=== PATIENT | male | born 1960 | race Two or more races ===

== ENCOUNTER 2023-06-11 13:45 | Emergency (ER) | payer OTHER, SELFPAY ==
--- NOTE | ~2023-06-11 | US_ITS ---
EXAMINATION: US OF GALLBLADDER CLINICAL INFORMATION: Right upper quadrant. COMPARISON: None available. TECHNIQUE: Real-time imaging of the gallbladder. FINDINGS: At least 2 polyps are noted, the largest measuring 9 x 6 x 7 mm. The gallbladder wall is mildly thickened at 3 mm. No gallstones. No pericholecystic fluid. The common bile duct measures 4 mm. US/US abdomen limited IMPRESSION: 1. Gallbladder polyps, the largest measuring 9 mm. 2. Mild gallbladder wall thickening without gallstones or other findings to suggest acute cholecystitis. Gallbladder polyps * <6 mm: No evaluation or follow-up recommended * 7-9 mm: Follow yearly with ultrasound; surgical consult if polyp grows. * >10 mm: Surgical consult.
[2023-06-11 14:26] VITALS: BP 127/94; PULSE 67; RESP 17; TEMP 36.6; O2SAT 97; BMI 26.3
--- NOTE | 2023-06-11 14:31 | ED.GENADULT ---
HPI - General Adult General Chief complaint: Abdominal Pain Stated complaint: abd pain Time Seen by Provider: 06/11/23 22:18 Source: patient Mode of arrival: ambulatory Limitations: no limitations History of Present Illness HPI narrative: 62 yo male denies any PMH and no prior surgeries reports one week of bloating and abdominal pain 30 minutes after eating. He has tried 20mg omeprazole over the counter for 1 week and pepto bismol without relief. He notes he belches and has a lot of acid as well. He is not sure if taking aleve for his back preceded all of this. He denies this ever happening before. No fevers, mild constipation MD complaint: abdominal pain Onset (ago): week(s) (1) Location: abdomen Radiation: non-radiation Severity: moderate Quality: aching, dull and constant Pain Consistency: intermittent Relieving factors: none Exacerbating factors: eating Associated symptoms: nausea/vomiting and other (acid) Treatments prior to arrival: other (PPI and pepto bismol) Related Data Previous Rx's Medication Instructions Recorded omeprazole 20 mg capsule,delayed 20 mg PO BID #60 caps 06/11/23 release Allergies Allergy/AdvReac Type Severity Reaction Status Date / Time No Known Allergies Allergy Verified 06/11/23 14:32 Review of Systems Review of Systems: Constitutional : No Weight loss, No Fever, No Chills ENT/Mouth : No sore throat, No Rhinorrhea Eyes: No Swelling, No Redness Cardiovascular : No Chest Pain, No SOB, NoEdema Respiratory : No Cough, No Sputum, No Wheezing Gastrointestinal : Positive Nausea, no Vomiting, no Diarrhea, positive abdominal Pain, No Hematochezia, No Melena, pos constipation Genitourinary : No Dysuria, No Urinary Frequency, No Hematuria, No Urgency Musculoskeletal : No joint pain, No Myalgias, No Joint Swelling Skin : No Skin Lesions, No rash Neuro : No Weakness, No Numbness, No Dizziness, No Headache Psych : No Anxiety/Panic, No Depression All other systems reviewed and are negative. [facility] Past Medical History Attestation statement: The following information was validated with the patient. Medical History No pertinent past medical history Social History Social History (Updated 06/11/23 @ 22:31 by Jasmin Moreland DO) Patient Tobacco Use Status: Never used Tobacco Physical Exam ED Vital Signs: Vital Signs - 24 hr 06/11/23 14:26 06/11/23 20:31 Temperature 97.8 F 97.5 F Pulse Rate 67 75 Respiratory Rate 17 14 Blood Pressure 127/94 H 176/72 H Pulse Oximetry 97 95 Oxygen Delivery Method Room Air Room Air BMI result Body Mass Index 26.3 Appearance: Alert. Oriented X3. No acute distress. Eyes: Pupils equal, round and reactive to light. ENT: Pharynx normal. Neck: Normal inspection. Neck supple. CVS: Normal heart rate and rhythm. Pulses normal. Respiratory: No respiratory distress. Breath sounds normal. Abdomen: Soft and ttp in RUQ + carrera's sign Skin: Skin warm and dry. Normal skin color. Normal skin turgor. Extremities: No lower extremity edema. No calf ttp Neuro: Oriented X 3. No motor deficit. No sensory deficit. Course Course Course Narrative: RME- 62-year-old male presents for evaluation of right-sided abdominal pain. Patient reports some nausea yesterday but no vomiting. Plan for labs, EKG Medical Decision Making Medical Decision Making [facility] Narrative: 62 yo male with no sig PMH no prior surgeries here with c/o RUQ and epigastric pain with increased acid and belching worsened by food - has not responded to home PPI and pepto bismol that he bought at the store. He has mild constipation. At this time could be related to recent aleve use. He could have gastritis, pancreatitis - lipase ordered, PUD - no reports of GIB, biliary colic. Labs, US ordered. Differential Diagnosis Differential Diagnoses: The differential diagnosis associated with the presentation includes gastritis, PUD, pancreatitis, biliary colic Admission/Observation Consideration of admission/observation: Escalation of care including admission/observation considered labs and US stable can be managed as outpatient Lab Data [facility] Lab Attestation statement: I reviewed the patient's lab results. 06/11/23 14:51 06/11/23 14:51 Labs: Lab Results 06/11/23 Range/Units 14:51 WBC 6.3 (4.8-10.8) X10*3/uL RBC 5.30 (4.60-5.80) X10*6/uL Hgb 16.6 (14.0-18.0) g/dl Hct 47.7 (42.0-52.0) % MCV 90.0 (80.0-98.0) fL MCH 31.3 (27.0-33.0) pg MCHC 34.8 (31.0-36.0) g/dl RDW 12.1 (11.0-16.0) % Plt Count 209 (160-400) X10*3/uL MPV 11.2 (9.4-12.4) fL Immature Gran % (Auto) 0.0 (0.0-0.4) % Neut % (Auto) 60.9 (45-73) % Lymph % (Auto) 27.0 (20-40) % [place] % (Auto) 10.7 (2-11) % Eos % (Auto) 0.9 (0-4) % Baso % (Auto) 0.5 (0-2) % Lymph # (Auto) 1.7 (1.2-4.9) X10*3/uL [place] # (Auto) 0.7 (0.1-1.2) X10*3/uL Eos # (Auto) 0.1 (0.0-0.4) X10*3/uL Baso # (Auto) 0.0 (0.0-0.2) X10*3/uL Abs Immat Gran (auto) 0.00 (0.00-0.03) X10*3/uL Absolute Neuts (auto) 3.9 (2.0-8.3) x10*3/uL Absolute Nucleated RBC 0.000 (0.0-0.012) X10*3/uL Nucleated RBC % (auto) 0.0 (0.0-0.2) /100WBC Hold Blue Top SEE NOTE Sodium 142 (135-145) mmol/L Potassium 4.3 (3.3-5.1) mmol/L Chloride 108 (96-108) mmol/L Carbon Dioxide 27 (22-29) mmol/L Anion Gap 11 L (12-20) BUN 21 H (9-16) mg/dL Creatinine 0.86 (0.5-1.4) mg/dL Estim Creat Clear Calc 83.9 Estimated GFR > 60 Random Glucose 97 (60-115) mg/dL Calcium 10.0 (8.4-10.2) mg/dL Total Bilirubin 0.4 (0.0-1.0) mg/dL AST 24 (5-37) U/L ALT 39 (0-40) U/L Alkaline Phosphatase 64 (39-117) U/L Total Protein 7.8 (6.5-8.0) g/dL Albumin 4.5 (3.5-5.0) g/dL Lipase 21 (8-78) U/L Independent Interpretation I performed an independent interpretation of an: EKG and Ultrasound (no acute cholecystitis) Interpretation: Rate: 73 Rhythm: NSR [place]: left Normal P waves. Normal EVIE. Normal QRS complex. ST T wave : normal no ROSMERY qTC: normal prior studies: no acute ischemia The study has been interpreted contemporaneously by me. . Radiology Impression Discussion of test interpretation with radiology: I have reviewed the radiologist's reading. Independent Historian Clinical information obtained from an independent historian. History obtained from or confirmed by: Friend Prescription Management I considered prescription management with: Other Discharge Plan Discharge Clinical Impression: Biliary colic Gastritis Qualifiers: Gastritis type: unspecified gastritis Chronicity: acute Gastritis bleeding: without bleeding Qualified Code(s): K29.00 - Acute gastritis without bleeding Patient Disposition: Home, Self-Care Instructions: Gastritis (ED), Biliary Colic (ED) Additional Instructions: no aspirin, motrin, ibuprofen, aleve - TYLENOL is OKAY avoid spicy, greasy, fatty foods follow up with surgeon call to schedule appointment start taking omeprazole 40mg BID for the next two weeks then 20mg daily going forward you need to see a doctor to follow up for h pylori testing you can call [facility] [phone] Prescriptions: New omeprazole 20 mg capsule,delayed release(DR/EC) 20 mg PO BID Qty: 60 0RF Referrals: Gorge Bass MD [Physician] - (call to schedule appointment)
--- NOTE | 2023-06-11 14:33 | ECG_ITS ---
Test Reason : PAIN Blood Pressure : / mmHG Vent. Rate : 073 BPM Atrial Rate : 073 BPM P-R Int : 142 ms QRS Dur : 080 ms QT Int : 412 ms P-R-T Axes : 046 -14 045 degrees QTc Int : 453 ms Normal sinus rhythm Normal ECG No previous ECGs available Referred By: Deonte Mann Electronically Signed By:CARISSA ELIZABETH MD
[2023-06-11 14:55] LABS: MANUAL DIFF FLAG NO
[2023-06-11 15:01] LABS: Basophils Percent Auto 0.5 % (0-2); Eosinophils Absolute Auto 0.1 X10*3/uL (0.0-0.4); Eosinophils Percent Auto 0.9 % (0-4); Hematocrit 47.7 % (42.0-52.0); Hemoglobin 16.6 g/dl (14.0-18.0); Lymphocytes Absolute Auto 1.7 X10*3/uL (1.2-4.9); Mean Corpuscular HGB Conc 34.8 g/dl (31.0-36.0); Mean Corpuscular Hemoglobin 31.3 pg (27.0-33.0); Mean Platelet Volume 11.2 fL (9.4-12.4); Monocytes Absolute Auto 0.7 X10*3/uL (0.1-1.2); Monocytes Percent Auto 10.7 % (2-11); Neutrophils Absolute Auto 3.9 x10*3/uL (2.0-8.3); Neutrophils Percent Auto 60.9 % (45-73); Platelet Count 209 X10*3/uL (160-400); Red Cell Distribution Width 12.1 % (11.0-16.0); White Blood Count 6.3 X10*3/uL (4.8-10.8)
[2023-06-11 15:14] LABS: Alanine Aminotransferase 39 U/L (0-40); Albumin Level 4.5 g/dL (3.5-5.0); Alkaline Phosphatase 64 U/L (39-117); Anion Gap 11 (12-20); Aspartate Amino Transferase 24 U/L (5-37); Bilirubin Total 0.4 mg/dL (0.0-1.0); Blood Urea Nitrogen 21 mg/dL (9-16); Carbon Dioxide 27 mmol/L (22-29); Chloride 108 mmol/L (96-108); Creatinine Clr Calc Pharmacy 83.9; Estimated Glomerular Filt Rate > 60; Glucose Random 97 mg/dL (60-115); Lipase 21 U/L (8-78); Potassium 4.3 mmol/L (3.3-5.1); Sodium 142 mmol/L (135-145); Total Protein 7.8 g/dL (6.5-8.0)
[2023-06-11 20:31] VITALS: BP 176/72; PULSE 75; RESP 14; TEMP 36.4; O2SAT 95
== END 2023-06-11 23:47 | disposition home or self-care (01) ==
PROVIDERS: Physician Assistant; Emergency Provider Emergency Medicine
DX: K80.50 Calculus of bile duct without cholangitis or cholecystitis without obstruction (principal); K29.00 Acute gastritis without bleeding; R10.9 Unspecified abdominal pain
CPT/HCPCS: 36415; 76705; 80053; 83690; 85025; 93005; 99284

== ENCOUNTER → 2023-06-11 14:33 | Outpatient (BNV) | payer OTHER, SELFPAY | PROVIDERS: Visit Provider Internal Medicine Cardiovascular Disease | DX: R10.13 Epigastric pain (principal) | CPT/HCPCS: 93010 ==

== ENCOUNTER 2023-06-20 12:57 | Outpatient (AMB) | payer OTHER, SELFPAY ==
--- NOTE | 2023-06-20 13:03 | A.OFFVIS_ITS ---
Intake Vital Signs 06/20/23 13:08 Height 5 ft 8 in Weight 174 lb BMI 26.5 BP 185/91 H Blood Pressure Location Rt brachial Position Sitting Pulse 67 Intake Visit Reasons: biliary colic Intake Note: This patient presents for [facility] emergency department follow-up for biliary colic. Patient c/o; reports intermittent RUQ sharp pain, reports bloating, reports burning sensation abdomen. 06/11/23 US abdomen Photograph Mounter Required: No Accompanied by: Self / Same As Patient Allergies No Known Allergies Allergy (Verified 06/20/23 13:08) Medication List - Last Reconciled 06/20/23 by Gorge Bass MD omeprazole 20 mg PO BID HPI biliary colic HPI Details 62-year-old male referred for gallbladde r polyps. He was in the ER for some transient abdominal pain earlier this month. He had an ultrasound of the abdomen showing small gallbladder polyps. He was therefore instructed to see me for follow-up visit. He describes the pain as mostly diffuse around that time. He said that he had this for about almost a week. He says that this started when he was eating spicy food around that time. He has had no further episodes. [facility] Medical History Gallbladder polyp No pertinent past medical history Surgical History No pertinent past surgical history Social History Unable to assess alcohol history related to: Unknown Alcohol intake: current Alcohol intake frequency: holidays/special occasions only Patient Tobacco Use Status: Never used Tobacco Review of Systems Const Denies chills and Denies fever(s) Card Denies chest pain, Denies dyspnea and Denies dyspnea on exertion Resp Denies cough, Denies dyspnea and Denies dyspnea on exertion GI Denies hematochezia and Denies change in bowel habits Denies hematuria and Denies difficulty urinating Musc Denies back pain and Denies limited range of motion Neuro Denies focal weakness and Denies convulsions Psych Denies depression and Denies mood swings Physical Exam Const General: comfortable and no acute distress Orientation/consciousness: patient oriented x3 Neck Neck: Yes no lymphadenopathy Resp Auscultation: clear to auscultation bilaterally Cardio Rhythm: regular rhythm GI Palpation (GI): Soft to palpation, nontender and no guarding Neuro General: patient oriented x3 Assessment & Plan Assessment & Plan (1) Gallbladder polyp: Code(s): K82.4 - Cholesterolosis of gallbladder Plan: His ultrasound shows small gallbladder polyps. With the small size, I told him it surgical intervention is not indicated. However, told him that it would be best to follow this was another ultrasound in about 6 months. I will then see him here in the office after that. He admits to frequent alcohol intake as well so I told him to avoid taking NSAIDs as etiology of his abdominal pain may be gastritis. Orders: Orders US abdomen limited 6 Months K82.4 - Cholesterolosis of gallbladder Coding Level of Care Code New Pt Level 3 (80299) Diagnoses Gallbladder polyp K82.4
[2023-06-20 13:08] VITALS: BP 185/91; PULSE 67; BMI 26.5
== END 2023-06-20 13:19 | disposition home or self-care (01) ==
PROVIDERS: Visit Provider Surgery
DX: K82.4 Cholesterolosis of gallbladder (principal)
CPT/HCPCS: 99203

== ENCOUNTER → 2023-06-20 12:57 | Outpatient (BNVA) | payer OTHER, SELFPAY | PROVIDERS: Visit Provider Surgery | DX: K82.4 Cholesterolosis of gallbladder (principal) | CPT/HCPCS: 99202 ==

== ENCOUNTER 2023-12-02 08:40 | Outpatient (REF) | payer MEDICARE, SELFPAY ==
--- NOTE | ~2023-12-02 | US_ITS ---
EXAMINATION: US ABDOMEN LIMITED CLINICAL INFORMATION: Cholesterolosis of gallbladder. COMPARISON: Limited abdominal ultrasound 06/11/2023. TECHNIQUE: Real-time imaging of the right upper quadrant abdominal viscera. FINDINGS: PANCREAS: Normal. LIVER: The liver is normal in size. The liver contour is normal. There is diffuse increased liver parenchymal echogenicity, consistent with hepatic steatosis. No focal hepatic lesion. There is no intrahepatic biliary duct dilatation seen. GALLBLADDER: The gallbladder is physiologically distended without evidence of stones, wall thickening or pericholecystic fluid. 3 mm polyp. COMMON BILE DUCT: Normal in caliber measuring 0.3 cm in diameter. RIGHT KIDNEY: Normal. No hydronephrosis. No renal calculi or focal parenchymal lesions. The kidney measures 10.5 cm in maximum dimension. FREE FLUID: None. US/US abdomen limited IMPRESSION: 3 mm gallbladder polyp. If patient has symptoms attributable to the gallbladder, cholecystectomy is suggested if there are no alternative causes for the symptoms and the patient is fit for and accepts surgery. If patient has no symptoms and risk factors are present or patient is symptomatic and cholecystectomy is deemed not appropriate, follow-up.
== END 2023-12-02 08:41 | disposition home or self-care (01) ==
LOC: HO.US 08:40
PROVIDERS: Visit Provider Surgery
DX: K82.4 Cholesterolosis of gallbladder (principal)
CPT/HCPCS: 76705

== ENCOUNTER 2023-12-23 10:06 | Outpatient (AMB) | payer MEDICARE, SELFPAY ==
[2023-12-23 10:18] VITALS: BMI 27.1
--- NOTE | 2023-12-23 10:18 | MHC.OFFVIS ---
Vital Signs 12/23/23 10:18 Height 5 ft 8 in Weight 178 lb BMI 27.1 Intake Visit Reasons: biliary colic, 6 mo follow up Intake Note: This patient presents for a six month follow-up for biliary colic. Patient c/o; reports several weeks ago had acid reflux and RUQ pressure otherwise patient feels well overall. 12/02/2023: Abdominal US Shake Feeder Required: No Accompanied by: Self / Same As Patient Allergies No Known Allergies Allergy (Verified 12/23/23 10:25) Medication List - Last Reconciled 12/23/23 by Gorge Bass MD omeprazole 20 mg PO BID HPI HPI biliary colic, 6 mo follow up: Details: He is here for follow-up for a gallbladder polyp. I had previously seen him months ago because of a 3 mm gallbladder polyp. He denied any symptoms at that time. I would recommended repeating his ultrasound within 6 months she He says he feels well overall and denies any new complaints. He does not seem to describe any right upper quadrant pain or tenderness. He does admit to reflux and takes Prilosec for this. [facility] Medical History Gallbladder polyp No pertinent past medical history Surgical History No pertinent past surgical history Social History Unable to assess alcohol history related to: Unknown Alcohol intake: current Alcohol intake frequency: holidays/special occasions only Patient Tobacco Use Status: Never used Tobacco Review of Systems Const Denies chills and Denies fever(s) Card Denies chest pain, Denies dyspnea and Denies dyspnea on exertion Resp Denies cough, Denies dyspnea and Denies dyspnea on exertion GI Denies hematochezia and Denies change in bowel habits Denies hematuria and Denies difficulty urinating Musc Denies back pain and Denies limited range of motion Neuro Denies focal weakness and Denies convulsions Psych Denies depression and Denies mood swings Physical Exam Vital Signs: BMI result Body Mass Index 27.1 Const General: comfortable and no acute distress Resp Effort & Inspection: normal respiratory effort Cardio Rate: regular rate GI Palpation (GI): Soft to palpation, not firm, nontender and no guarding Assessment & Plan Assessment & Plan (1) Gallbladder polyp: Code(s): K82.4 - Cholesterolosis of gallbladder Category: Medical Plan: Follow-up ultrasound done last month showed the gallbladder polyp to be 3 mm in size. I therefore told him that cholecystectomy is not indicated based on size. He denies symptoms that seem to suggest gallbladder disease either. I told him therefore that I would recommend repeating his ultrasound in 1 year. I will see him after next year with regards to this He does not have any primary care physician. We will assist him in establishing a relationship with 1 of our primary care physicians here at the hospital. Coding Level of Care Code Est Pt Level 3 (37481) Diagnoses Gallbladder polyp K82.4
== END 2023-12-23 10:34 | disposition home or self-care (01) ==
PROVIDERS: Visit Provider Surgery
DX: K82.4 Cholesterolosis of gallbladder (principal)
CPT/HCPCS: 99213

== ENCOUNTER → 2023-12-23 10:06 | Outpatient (BNVA) | payer MEDICARE, SELFPAY | PROVIDERS: Visit Provider Surgery | DX: K82.4 Cholesterolosis of gallbladder (principal) | CPT/HCPCS: 99212 ==

== ENCOUNTER 2024-07-23 10:39 | Emergency (ER) | payer MEDICARE, SELFPAY ==
--- NOTE | ~2024-07-23 | XR_ITS ---
EXAMINATION: XR CHEST CLINICAL INFORMATION: pain COMPARISON: None available. TECHNIQUE: 2 views of the chest were obtained. FINDINGS: The cardiac, hilar, and mediastinal contours are normal. There is thickening of the right paratracheal region. The lungs are clear bilaterally. There is no pneumothorax or pleural effusion. There is no focal osseous or soft tissue abnormality. XR/XR chest 2V IMPRESSION: 1. Lungs are clear. 2. Thickening of the right paratracheal region, possibly ectatic vasculature although underlying adenopathy or mass is not excluded. Consider correlation with CT. Electronically signed by: Wilmar Juárez MD 07/23/2024 11:32 AM [facility]
--- NOTE | ~2024-07-23 | CT_ITS ---
CLINICAL HISTORY: CP, ?mass CT CHEST WITH CONTRAST Comparison: CR/SC/SR - XR CHEST 2V - 07/23/24 11:27 EST Findings: The heart size is normal. The thoracic aorta is normal in caliber. The visualized thyroid and mediastinum are unremarkable. No consolidation, pleural effusion or pneumothorax. No pulmonary mass. There is an 8 mm noncalcified ovoid nodule in the left upper lobe that abuts the fissure on axial image 60 series 4. There is diffuse fatty infiltration of the liver. No acute fractures. IMPRESSION: 1. No mediastinal mass, lymphadenopathy or fluid collection. 2. No acute pleural or pulmonary parenchymal abnormality. 3. Solitary 8 mm left lung nodule in the left upper lobe. ACR Fleischner Society recommendations (MacMahon, et al. Radiology 2017; 284(1): 228-43) suggest the following: For patients with low risk of lung cancer, follow-up chest CT at 6-12 months. If stable, no further follow-up or an optional chest CT at 18-24 months if there is high index of suspicion. For patients with high risk of lung cancer, initial follow-up chest CT at 6-12 months, if stable, another follow-up chest CT at 18-24 months. This document has been electronically signed by: Suma Doll DO on 07/23/2024 17:16:52
--- NOTE | 2024-07-23 10:48 | ECG_ITS ---
Test Reason : chest pain Blood Pressure : */* mmHG Vent. Rate : 71 BPM Atrial Rate : 71 BPM P-R Int : 144 ms QRS Dur : 80 ms QT Int : 396 ms P-R-T Axes : 30 -17 37 degrees QTcB Int : 430 ms Normal sinus rhythm Normal ECG When compared with ECG of 11-Jun-2023 14:45, No significant change was found Referred By: Generic ED Physician Electronically Signed By: BG PIZARRO
[2024-07-23 11:01] VITALS: BP 176/99; PULSE 75; RESP 18; TEMP 36.7; O2SAT 96; BMI 27.1
--- NOTE | 2024-07-23 11:02 | ED_ITS ---
[facility] - General Adult General Chief complaint: Chest Pain Stated complaint: Recent facial numbness, chest pain Time Seen by Provider: 07/23/24 15:37 Source: patient and RN notes reviewed Mode of arrival: ambulatory Limitations: no limitations History of Present Illness ED Provider: Steph Desir PA-C [facility] narrative: This is a 63-year-old male, no known medical problems (however has not seen a medical provider in over 12 years), who presents emergency department with complaints of ongoing chest pain for 1 week. Patient states that he developed left-sided chest pain which radiated down into his left shoulder, and left arm while he was with his son. Patient states that since he has felt this he has had constant chest pain, which waxes and wanes in severity. He describes his pain as a pressure-like sensation. Patient does endorse some shortness of breath. He denies any fevers, chills, abdominal pain, nausea, vomiting or diarrhea. No nasal congestion. No recent travel, surgery, or hospitalizations. Denies any changes in weight, he does report he has had several instances of night sweats. MD complaint: Chest pain Onset (ago): week(s) Quality: aching Pain Consistency: constant Relieving factors: none Exacerbating factors: none Associated symptoms: chest pain Related Data Previous Rx's ?Medication ?Instructions ?Recorded omeprazole 20 mg capsule,delayed 20 mg PO BID #60 caps 12/25/23 release amlodipine 5 mg tablet 5 mg PO DAILY 30 days #30 tabs 07/23/24 Allergies Allergy/AdvReac Type Severity Reaction Status Date / Time No Known Allergies Allergy Verified 07/23/24 11:02 Review of Systems 2 Review of Systems: Yes all other systems are reviewed and are negative Constitutional: Constitutional: Reports as per [facility] Past Medical History Medical History Gallbladder polyp No pertinent past medical history Surgical History No pertinent past surgical history Social History Social History Unable to assess alcohol history related to: Unknown Alcohol intake: current Alcohol intake frequency: holidays/special occasions only Patient Tobacco Use Status: Never used Tobacco Smoked in Last 30 Days: No Use of substances other than those prescribed or required for medical reasons: No Advance Directives: No Advance Directives Information Provided: Yes Physical Exam ED Vital Signs: Vital Signs - 24 hr 07/23/24 11:01 07/23/24 16:39 07/23/24 18:27 Temperature 98.0 F 98 F 98.6 F Pulse Rate 75 68 83 Respiratory Rate 18 18 17 Blood Pressure 176/99 H 179/99 H 198/102 H Pulse Oximetry 96 98 100 Oxygen Delivery Method Room Air Room Air Room Air 07/23/24 18:42 Temperature 98.6 F Pulse Rate 83 Respiratory Rate 17 Blood Pressure 198/102 H Pulse Oximetry 100 Oxygen Delivery Method Room Air BMI result Body Mass Index 27.1 Const General: cooperative, comfortable and no acute distress Orientation/consciousness: patient oriented x3 Limitations: no limitations HENMT Head: Yes normal to inspection, Yes normocephalic and Yes atraumatic Ears: hearing grossly normal bilaterally General nose exam: Normal external nose present Face and sinus: Yes normal facial exam Mouth: Normal oral and palatal mucosa present, oropharynx normal and moist mucous membranes Throat: Yes posterior oropharynx normal Eyes General: appearance normal, both eyes and all related structures Eyelids: Yes eyelids normal Conjunctivae: conjunctivae normal Sclerae: sclerae normal Pupils: Equal, round and reactive pupils present EOM: EOMs intact bilaterally Neck Neck: Yes normal visual inspection, Yes full ROM and Yes no lymphadenopathy Lymphatic: no lymphadenopathy noted Chest Chest palpation & inspection: normal inspection of the chest Resp Effort & Inspection: normal respiratory effort and able to speak in complete sentences Auscultation: clear to auscultation bilaterally, no crackles, no rales, no rhonchi and no wheezes Cardio Rate: regular rate Rhythm: regular rhythm Heart sounds: S1 normal heart sound present and S2 normal heart sound present GI Inspection: Yes normal to inspection Skin General skin exam: no rashes or lesions noted Trauma: no lacerations or abrasions Wounds: no wounds Neuro General: patient oriented x3 and moves all extremities Cranial nerves: Yes Equal, round and reactive pupils present Extrem General: Yes normal to inspection Right upper extremity: normal to inspection Left upper extremity: normal to inspection Right lower extremity: normal to inspection Left lower extremity: normal to inspection Course Course Course Narrative: RME, this is a rapid medical exam performed by Ibrahima Mann please refer to primary provider for complete H&P- 63-year-old male presents for evaluation of chest pain for 1 week. Had an EKG ordered on arrival. Plan for labs as well. Reevaluation(s) Reevaluation #1: CT revealing solitary 8 mm left lung nodule in the left upper lobe. There is no mediastinal mass, lymphadenopathy or fluid collection. I discussed this workup with my attending physician, Dr. Grider. Given negative troponin x2, normal EKG, normal chest x-ray, patient can be discharged. Will discharge patient on amlodipine given elevated blood pressure readings. Given strict return precautions. Also cardiology referral. He understands and agrees with plan. Patient stable for discharge. Time: 17:32 Medications Administered Discontinued Medications Generic Name Dose Route Start Last Admin Trade Name Freq PRN Reason Stop Dose Admin Iohexol 65 ml 07/23/24 16:37 07/23/24 16:38 Iohexol 350 Mg/Ml 100 Ml Infus..Btl IV 07/23/24 16:38 65 ml ONCE ONE Administration Medical Decision Making Medical Decision Making [facility] Narrative: This is a 63-year-old male who presents emergency department with complaints of intermittent chest pressure with shortness of breath for the last week. Patient reports that the chest pain is pressure however states intermittent worsening chest pain, with radiation down his left arm. He states that the chest pain has not fully resolved. Patient mildly hypertensive at 176/90, all other vital signs within normal limits. He is speaking in full sentences under no acute distress. Lungs are clear to auscultation bilaterally. EKG normal sinus rhythm with no ST elevation or depression. Labs were obtained prior to my assessment, he was no leukocytosis, stable H&H, chemistry with no significant electrolyte derangement. First troponin negative. Influenza, RSV, and COVID negative. Chest x-ray revealing clear lungs however there is thickening of the right paratracheal region possibly ectatic vasculature a low underlying adenopathy or masses not excluded. Recommending correlation of CT scan. CT scan ordered Differential Diagnosis Differential Diagnoses: The differential diagnosis associated with the presentation includes ACS, costochondritis, pneumonia, viral illness Admission/Observation Consideration of admission/observation: Escalation of care including admission/observation considered Escalation of care including admission/observation considered however given workup today not warranted at this time. Lab Data [facility] Lab Attestation statement: I reviewed the patient's lab results. See [facility] 07/23/24 11:16 07/23/24 11:16 Labs: Lab Results 07/23/24 07/23/24 07/23/24 Range/Units 11:16 16:13 16:52 WBC 5.9 (4.8-10.8) X10*3/uL RBC 5.08 (4.60-5.80) X10*6/uL Hgb 16.5 (14.0-18.0) g/dl Hct 45.8 (42.0-52.0) % MCV 90.2 (80.0-98.0) fL MCH 32.5 (27.0-33.0) pg MCHC 36.0 (31.0-36.0) g/dl RDW 11.9 (11.0-16.0) % Plt Count 182 (160-400) X10*3/uL MPV 11.0 (9.4-12.4) fL Immature Gran % (Auto) 0.2 (0.0-0.4) % Neut % (Auto) 56.8 (45-73) % Lymph % (Auto) 28.2 (20-40) % Logan % (Auto) 12.8 H (2-11) % Eos % (Auto) 1.5 (0-4) % Baso % (Auto) 0.5 (0-2) % Lymph # (Auto) 1.7 (1.2-4.9) X10*3/uL Logan # (Auto) 0.8 (0.1-1.2) X10*3/uL Eos # (Auto) 0.1 (0.0-0.4) X10*3/uL Baso # (Auto) 0.0 (0.0-0.2) X10*3/uL Abs Immat Gran (auto) 0.01 (0.00-0.03) X10*3/uL Absolute Neuts (auto) 3.4 (2.0-8.3) x10*3/uL Absolute Nucleated RBC 0.000 (0.0-0.012) X10*3/uL Nucleated RBC % (auto) 0.0 (0.0-0.2) /100WBC PT 11.5 (10.9-12.4) SEC INR 1.0 (0.9-1.1) Sodium 139 (135-145) mmol/L Potassium 3.9 (3.3-5.1) mmol/L Chloride 108 (96-108) mmol/L Carbon Dioxide 27 (22-29) mmol/L Anion Gap 8 L (12-20) BUN 14 (9-16) mg/dL Creatinine 0.73 (0.5-1.4) mg/dL Estim Creat Clear Calc 97.6 Estimated GFR > 60 Random Glucose 93 (60-115) mg/dL Calcium 9.3 D (8.4-10.2) mg/dL Total Bilirubin 0.4 (0.0-1.0) mg/dL AST 29 (5-37) U/L ALT 50 H (0-40) U/L Alkaline Phosphatase 64 (39-117) U/L Troponin I High Sens < 2.7 < 2.7 (<3.5-35.0) ng/L B-Natriuretic Peptide 14 (<100) pg/mL Total Protein 7.6 (6.5-8.0) g/dL Albumin 4.3 (3.5-5.0) g/dL Lipase 24 (8-78) U/L Influenza Type A (PCR) NEGATIVE (Negative) Influenza Type B (PCR) NEGATIVE (Negative) RSV RNA Qual (PCR) NEGATIVE (Negative) SARS-CoV-2 RNA (RT-PCR) NEGATIVE (Negative) Independent Interpretation I performed an independent interpretation of an: EKG Interpretation: EKG normal sinus rhythm at a ventricular rate of 71 beats per minute, no ST elevation or depression. Radiology Impression Discussion of test interpretation with radiology: I have reviewed the radiologist's reading. Radiologist Impression: [place] [id number] XRay Report Signed Patient: Jordan Blanco MR#: [id number] : 1960 Acct:[id number] Age/Sex: 63 / M ADM Date: 07/23/24 Loc: .ED Attending Dr: Ordering Physician: Deonte Mann Date of Service: 07/23/24 Procedure(s): XR chest 2V Accession Number(s): [id number] cc: Deonte Mann; Physician,None ~ EXAMINATION: XR CHEST CLINICAL INFORMATION: pain COMPARISON: None available. TECHNIQUE: 2 views of the chest were obtained. FINDINGS: The cardiac, hilar, and mediastinal contours are normal. There is thickening of the right paratracheal region. The lungs are clear bilaterally. There is no pneumothorax or pleural effusion. There is no focal osseous or soft tissue abnormality. XR/XR chest 2V IMPRESSION: 1. Lungs are clear. 2. Thickening of the right paratracheal region, possibly ectatic vasculature although underlying adenopathy or mass is not excluded. Consider correlation with CT. Electronically signed by: Wilmar Juárez MD 07/23/2024 11:32 AM [facility] Dictated By: Wilmar Juárez MD Scores Heart Score History: -0- slightly suspicious ECG: -0- normal Age: -2- > or = 65 Risk factory: -1- 1 or 2 risk factors Troponin: -0- < or = normal limit Score: 3 Risk: 1.7% Discharge Plan Discharge Clinical Impression: Chest pain Patient Disposition: Home, Self-Care Instructions: Chest Pain (ED) Additional Instructions: You were seen in the emergency department due to ongoing chest pain. Your EKG was normal. Your blood pressure has been elevated, because of this, I am going to start you on blood pressure medication. Please take as prescribed. Monitor your blood pressure at home, buy a blood pressure cuff that goes around your upper arm. Record the levels, this may take several weeks for your blood pressure to improve. Your CT scan shows a solitary 8 mm left lung nodule in the left upper lobe. See below for recommendations for follow-up regarding this finding: ACR Fleischner Society recommendations (MacMahon, et al. Radiology 2017; 284(1): 228-43) suggest the following: For patients with low risk of lung cancer, follow-up chest CT at 6-12 months. If stable, no further follow-up or an optional chest CT at 18-24 months if there is high index of suspicion. For patients with high risk of lung cancer, initial follow-up chest CT at 6-12 months, if stable, another follow-up chest CT at 18-24 months. You tested negative for COVID, flu, RSV. Please drink plenty of fluids get plenty of rest. If any new or worsening symptoms occur including but not limited to worsening chest pain, shortness of breath, please seek emergent care. I would like for you to follow-up with Cardiology, call tomorrow to make an appointment. Would also like you to follow-up with the [facility], this is a primary care office. Prescriptions: New amlodipine 5 mg tablet 5 mg PO DAILY 30 Days Qty: 30 0RF No Action omeprazole 20 mg capsule,delayed release(DR/EC) 20 mg PO BID Qty: 60 0RF Referrals: [facility] Group] [facility] [Physician] - Interventions: ED Discharge Assessment Last Done: 07/23/24 18:42 Discharge Date/Time: 07/23/24 18:44 Print Language: Urdu
[2024-07-23 11:24] LABS: MANUAL DIFF FLAG NO
[2024-07-23 11:28] LABS: Basophils Percent Auto 0.5 % (0-2); Eosinophils Absolute Auto 0.1 X10*3/uL (0.0-0.4); Eosinophils Percent Auto 1.5 % (0-4); Hematocrit 45.8 % (42.0-52.0); Hemoglobin 16.5 g/dl (14.0-18.0); Imm Gran Abs Auto 0.01 X10*3/uL (0.00-0.03); Imm Gran Pct Auto 0.2 % (0.0-0.4); Lymphocytes Absolute Auto 1.7 X10*3/uL (1.2-4.9); Lymphocytes Percent Auto 28.2 % (20-40); Mean Corpuscular Hemoglobin 32.5 pg (27.0-33.0); Mean Corpuscular Volume 90.2 fL (80.0-98.0); Monocytes Absolute Auto 0.8 X10*3/uL (0.1-1.2); Monocytes Percent Auto 12.8 % (2-11); Neutrophils Absolute Auto 3.4 x10*3/uL (2.0-8.3); Neutrophils Percent Auto 56.8 % (45-73); Platelet Count 182 X10*3/uL (160-400); Red Blood Count 5.08 X10*6/uL (4.60-5.80); Red Cell Distribution Width 11.9 % (11.0-16.0); White Blood Count 5.9 X10*3/uL (4.8-10.8)
[2024-07-23 11:31] LABS: Prothrombin Time 11.5 SEC (10.9-12.4)
[2024-07-23 11:41] LABS: Albumin Level 4.3 g/dL (3.5-5.0); Alkaline Phosphatase 64 U/L (39-117); Anion Gap 8 (12-20); Aspartate Amino Transferase 29 U/L (5-37); Bilirubin Total 0.4 mg/dL (0.0-1.0); Blood Urea Nitrogen 14 mg/dL (9-16); Calcium 9.3 mg/dL (8.4-10.2); Carbon Dioxide 27 mmol/L (22-29); Chloride 108 mmol/L (96-108); Creatinine Clr Calc Pharmacy 97.6; Estimated Glomerular Filt Rate > 60; Glucose Random 93 mg/dL (60-115); Lipase 24 U/L (8-78); Potassium 3.9 mmol/L (3.3-5.1); Sodium 139 mmol/L (135-145); Total Protein 7.6 g/dL (6.5-8.0)
[2024-07-23 11:50] LABS: Troponin-I High Sensitivity < 2.7 ng/L (<3.5-35.0)
[2024-07-23 11:57] LABS: Alanine Aminotransferase 50 U/L (0-40)
[2024-07-23 12:12] LABS: Influenza A PCR NEGATIVE (Negative); Influenza B PCR NEGATIVE (Negative); Resp Syncy Virus RNA Qual PCR NEGATIVE (Negative); SARS COV2 PCR INHOUSE NEGATIVE (Negative)
[2024-07-23] MEDS: iohexoL 350 MG/ML 100 ML INFUS..BTL 65 ML IV (16:38)
[2024-07-23 16:39] VITALS: BP 179/99; PULSE 68; RESP 18; TEMP 36.6; O2SAT 98
[2024-07-23 16:46] LABS: Troponin-I High Sensitivity < 2.7 ng/L (<3.5-35.0)
[2024-07-23 17:32] LABS: B Type Natriuretic Peptide 14 pg/mL (<100)
[2024-07-23 18:27] VITALS: BP 198/102; PULSE 83; RESP 17; TEMP 37; O2SAT 100
[2024-07-23 18:42] VITALS: BP 198/102; PULSE 83; RESP 17; TEMP 37; O2SAT 100
--- OUTSIDE RECORDS SUMMARY | 2024-07-23 19:36 | XMS_ITS | Clinical Summary ---
Author Organization [facility] Address [address] [place] [address] Phone Care Team Providers Care Contract Administrative Assistant Name Role Phone Physician, No Pcp Primary Care Provider Unavaila ble Allergies No known active allergies Encounters Date Type Department Care Team Description 07/18/2024 3:36 PM EST - 07/19/2024 Emergency [facility] Emergency [address] [place] [address] Discharge Disposition: Left Against Medical Advice from Last 3 Months Medical History Medical History Date Comments HTN (hypertension) Social History Tobacco Use Types Packs/Day Years Used Date Smoking Tobacco: Never Smokeless Tobacco: Never Tobacco Cessation:Counseling Given: Not Answered Sex and Gender Information Value Date Recorded Sex Assigned at Not on file Gender Identity Not on file Sexual Orientation Not on file Job Start Date Occupation Industry Not on file Not on file Not on file Obstetrics History Last Filed Vital Signs Vital Sign Reading Time Taken Comments Blood Pressure 154/79 07/18/2024 8:03 PM EST Pulse 67 07/18/2024 8:03 PM EST Temperature 36.4 ??C (97.5 ??F) 07/18/2024 8:03 PM ES T Respiratory Rate 16 07/18/2024 8:03 PM EST Oxygen Saturation 97% 07/18/2024 8:03 PM EST Inhaled Oxygen Concentration - - Weight 80.3 kg (177 lb) 07/18/2024 3:53 PM EST Height 172.7 cm (5' 8 ) 07/18/2024 3:53 PM EST Body Mass Index 26.91 07/18/2024 3:53 PM EST Plan of Treatment Health Maintenance Due Date Last Done Comments Cholesterol Screening (Lipid Panel) 08/11/2022 Colorectal Cancer Screening: Colonoscopy 08/11/2022 Depression Screening 08/11/2022 Hepatitis C Screening 08/11/2022 Medicare Annual Wellness Visit 08/11/2022 Social Influencers of Health Screening 08/11/2022 Falls Risk Assessment 11/03/2023 Pneumococcal Vaccine: 65+ Years (1 of 1 - PCV) 11/03/2023 COVID-19 Vaccine (2 - 2023-2 5 season) 2024 07/04/2022 Influenza Vaccine (#1) 2024 DTaP,Tdap,and Td Vaccines (2 - Td or Tdap) 12/10/2031 12/09/2021 RSV Immunization Patients 60 + Years Old (1 - 1-dose 75+ series) 2033 Zoster Vaccines Completed 06/26/2023, 07/04/2022 HIB Vaccines Aged Out No longer eligi ble based on patient's age to complete this topic HPV Vaccines Aged Out No longer eligi ble based on patient's age to complete this topic Hepatitis A Vaccines Aged Out No long er eligible based on patient's age to complete this topic Hepatitis B Vaccines Aged Out No long er eligible based on patient's age to complete this topic IPV Vaccines Aged Out No longer eligi ble based on patient's age to complete this topic MMR Vaccines Aged Out No longer eligi ble based on patient's age to complete this topic Meningococcal ACWY Vaccine Aged Out N o longer eligible based on patient's age to complete this topic Pneumococcal Vaccine: Pediatrics (0 to 5 Years) and At-Risk Patients (6 to 64 Years) Aged Out No longer eligible b ased on patient's age to complete this topic RSV Immunization Patients Under 20 months Aged Out No longer eligible b ased on patient's age to complete this topic Varicella Vaccines Aged Out No longer eligible based on patient's age to complete this topic Procedures Procedure Name Priority Date/Time Associated Diagnosis Comments XR CHEST 2 VIEWS STAT 07/18/2024 5:50 PM EST CBC WITH AUTO DIFFERENTIAL STAT 07/18/2024 5:42 PM EST B-TYPE NATRIURETIC PEPTIDE STAT 07/18/2024 5:42 PM EST MAGNESIUM STAT 07/18/2024 5:42 PM EST LIPASE STAT 07/18/2024 5:42 PM EST COMPREHENSIVE METABOLIC PANEL STAT 07/18/2024 5:42 PM EST CBC AND DIFFERENTIAL STAT 07/18/2024 5:42 PM EST TROPONIN I HIGH SENSITIVITY STAT 07/18/2024 5:42 PM EST ECG 12-LEAD STAT 07/18/2024 3:50 PM EST from Last 3 Months Results * XR Chest 2 Views (07/18/2024 5:50 PM EST) Anatomical Region Laterality Modality Body Radiographic Li ging 07/19/2024 10:1 6 AM EST Impressions 07/19/2024 10:16 AM EST Impression: No active pulmonary process identified. Telerad DEDE ([id number]) -------- FINAL REPORT -------- Dictated By: Xochitl Baig Dictated Date: 07/19/2024 10:16 ET Assigned Physician: Xochitl Baig Reviewed and Electronically Signed By: Xochitl Baig Signed Date: 07/19/2024 10:16 ET Workstation ID: [id number] Transcribed By: Self Edit Transcribed Date: 07/19/2024 10:16 ET Narrative 07/19/2024 10:16 AM EST History: Chest pain. Comparison: No previous imaging at this institution. Findings: PA and lateral views. The cardiomediastinal silhouette, hilar contours and pulmonary vascularity are within normal limits. The lungs are clear. The costophrenic angles are sharp. The regional skeleton is intact. Procedure Note Xochitl Baig MD - 07/19/2024 History: Chest pain. Comparison: No previous imaging at this institution. Findings: PA and lateral views. The cardiomediastinal silhouette, hilar contours andpulmonary vascularity are within normal limits. The lungs are clear. Thecostophrenic angles are sharp. The regional skeleton is intact. IMPRESSION: Impression: No active pulmonary process identified. Telerad PA ([id number]) -------- FINAL REPORT -------- Dictated By: Xochitl Baig Dictated Date: 07/19/2024 10:16 ET Assigned Physician: Xochitl Baig Reviewed and Electronically Signed By: Xochitl Baig Signed Date: 07/19/2024 10:16 ET Workstation ID: [id number] Transcribed By: Self Edit Transcribed Date: 07/19/2024 10:16 ET Demetrius Vitale MD IMG XR PROCEDURES * Troponin I high sensitivity (07/18/2024 5:42 PM EST) [facility] High Sensitivity Troponin I 7 <=79 ng/L LAB CHEMISTRY METHOD 07/18/2024 6:31 PM EST [facility] Blood Venous blood specimen / Unknown Venipuncture / Unknown 07/18/2024 5:42 PM EST 07/18/2024 6:02 PM EST Narrative [facility] - 07/18/2024 6:31 PM EST High levels of biotin in samples may falsely decrease hsTroponin values. ??Use caution when interpreting hsTroponin results in patients taking biotin who exhibit renal impairment (eGFR <60) or in patients taking more than 20 mg/day of biotin. Demetrius Vitale MD LAB BLOOD ORDERABLE S [facility] [address] [place] [address], * (ABNORMAL) CBC auto differential (07/18/2024 5:42 PM EST) [facility] WBC 8.2 4.8 - 10.8 K/[facility] LAB HEMETOLOGY METHOD 07/18/2024 6:08 PM EST [facility] RBC 5.20 4.50 - 5.50 M/[facility] LAB HEMETOLOGY METHOD 07/18/2024 6:08 PM [facility] Hemoglobin 16.5 13.5 - 17.5 g/dL LAB HEMETOLOGY METHOD 07/18/2024 6:08 PM [facility] Hematocrit 47.9 42.0 - 54.0 % LAB HEMETOLOGY METHOD 07/18/2024 6:08 PM [facility] MCV 92.6 79.0 - 98.0 FL LAB HEMETOLOGY METHOD 07/18/2024 6:08 PM [facility] MCH 31.9 27.0 - 32.0 pcg LAB HEMETOLOGY METHOD 07/18/2024 6:08 PM [facility] MCHC 34.4 32.0 - 37.0 g/dL LAB HEMETOLOGY METHOD 07/18/2024 6:08 PM [facility] RDW 12.0 11.0 - 15.0 % LAB HEMETOLOGY METHOD 07/18/2024 6:08 PM [facility] Platelets 212 130 - 400 K/mcL LAB HEMETOLOGY METHOD 07/18/2024 6:08 PM [facility] MPV 11.2(H) 7.0 - 11.0 FL LAB HEMETOLOGY METHOD 07/18/2024 6:08 PM [facility] NRBC 0.0 <1.0 % LAB HEMETOLOGY METHOD 07/18/2024 6:08 PM [facility] NRBC Absolute 0.00 <0.10 K/mcL LAB HEMETOLOGY METHOD 07/18/2024 6:08 PM [facility] Neutrophils Relative 62.1 % LAB HEMETOLOGY METHOD 07/18/2024 6:08 PM [facility] Lymphocytes Relative 26.4 % LAB HEMETOLOGY METHOD 07/18/2024 6:08 PM [facility] Monocytes Relative 9.7 % LAB HEMETOLOGY METHOD 07/18/2024 6:08 PM [facility] Eosinophils Relative 1.0 % LAB HEMETOLOGY METHOD 07/18/2024 6:08 PM [facility] Basophils Relative 0.6 % LAB HEMETOLOGY METHOD 07/18/2024 6:08 PM [facility] Immature Granulocytes Relative 0.2 % LAB HEMETOLOGY METHOD 07/18/2024 6:08 PM [facility] Neutrophils Absolute 5.06 1.50 - 7.00 K/mcL LAB HEMETOLOGY METHOD 07/18/2024 6:08 PM [facility] Lymphocytes Absolute 2.15 1.00 - 5.00 K/mcL LAB HEMETOLOGY METHOD 07/18/2024 6:08 PM [facility] Monocytes Absolute 0.79 0.20 - 1.00 K/mcL LAB HEMETOLOGY METHOD 07/18/2024 6:08 PM EST [facility] Eosinophils Absolute 0.08 0.00 - 0.50 K/mcL LAB HEMETOLOGY METHOD 07/18/2024 6:08 PM [facility] Basophils Absolute 0.05 0.00 - 0.20 K/mcL LAB HEMETOLOGY METHOD 07/18/2024 6:08 PM [facility] Immature Granulocytes Absolute 0.02 0.00 - 0.03 K/mcL LAB HEMETOLOGY METHOD 07/18/2024 6:08 PM [facility] Blood Venous blood specimen / Unknown Venipuncture / Unknown 07/18/2024 5:42 PM EST 07/18/2024 6:02 PM EST Demetrius Vitale MD LAB BLOOD ORDERABLE S [facility] [address] [place] [address], * B-type natriuretic peptide (07/18/2024 5:42 PM EST) BNP 6 <=100 pcg/mL LAB CHEMISTRY METHOD 07/18/2024 6:39 PM EST [facility] Blood Venous blood specimen / Unknown Venipuncture / Unknown 07/18/2024 5:42 PM EST 07/18/2024 6:02 PM EST Demetrius Vitale MD LAB BLOOD ORDERABLE S [facility] [address] [place] [address], [place] [phone] * Magnesium (07/18/2024 5:42 PM EST) Magnesium 2.2 1.9 - 2.6 mg/dL LAB CHEMISTRY METHOD 07/18/2024 6:36 PM EST [facility] Blood Venous blood specimen / Unknown Venipuncture / Unknown 07/18/2024 5:42 PM EST 07/18/2024 6:02 PM EST Demetrius Vitale MD LAB BLOOD ORDERABLE S [facility] [address] [place] [address], [place] [phone] * Lipase (07/18/2024 5:42 PM EST) Lipase 44 13 - 75 unit/L LAB CHEMISTRY METHOD 07/18/2024 6:36 PM EST [facility] Blood Venous blood specimen / Unknown Venipuncture / Unknown 07/18/2024 5:42 PM EST 07/18/2024 6:02 PM EST Demetrius Vitale MD LAB BLOOD ORDERABLE S [facility] [address] [place] [address], [place] [phone] * Comprehensive metabolic panel (07/18/2024 5:42 PM EST) Sodium 138 133 - 145 mmol/L LAB CHEMISTRY METHOD 07/18/2024 6:36 PM [facility] Potassium 4.1 3.5 - 5.5 mmol/L LAB CHEMISTRY METHOD 07/18/2024 6:36 PM [facility] Chloride 106 96 - 110 mmol/L LAB CHEMISTRY METHOD 07/18/2024 6:36 PM [facility] CO2 27 21 - 32 mmol/L LAB CHEMISTRY METHOD 07/18/2024 6:36 PM [facility] Anion Gap 5 3 - 11 LAB CHEMISTRY METHOD 07/18/2024 6:36 PM [facility] Glucose 94 70 - 100 mg/dL LAB CHEMISTRY METHOD 07/18/2024 6:36 PM [facility] BUN 20 5 - 25 mg/dL LAB CHEMISTRY METHOD 07/18/2024 6:36 PM [facility] Creatinine 0.87 0.70 - 1.30 mg/dL LAB CHEMISTRY METHOD 07/18/2024 6:36 PM [facility] eGFR 96 >=60 mL/min/1. 73m2 LAB CHEMISTRY METHOD 07/18/2024 6:36 PM [facility] Comment:Calculation based on the??Chronic Kidney Disease Epidemiology Collaboration (CKD-EPI) equation refit??without adjustment for race. BUN/Creatinine Ratio 23.0 LAB CHEMISTRY METHOD 07/18/2024 6:36 PM [facility] Calcium 9.4 8.5 - 10.5 mg/dL LAB CHEMISTRY METHOD 07/18/2024 6:36 PM [facility] AST (SGOT) 21 10 - 42 unit/L LAB CHEMISTRY METHOD 07/18/2024 6:36 PM [facility] ALT (SGPT) 52 10 - 60 unit/L LAB CHEMISTRY METHOD 07/18/2024 6:36 PM EST [facility] Alkaline Phosphatase 76 42 - 121 unit/L LAB CHEMISTRY METHOD 07/18/2024 6:36 PM EST [facility] Total Protein 7.5 6.0 - 8.0 g/dL LAB CHEMISTRY METHOD 07/18/2024 6:36 PM [facility] Albumin 4.0 3.2 - 5.0 g/dL LAB CHEMISTRY METHOD 07/18/2024 6:36 PM [facility] Total Bilirubin 0.3 0.0 - 1.4 mg/dL LAB CHEMISTRY METHOD 07/18/2024 6:36 PM [facility] Blood Venous blood specimen / Unknown Venipuncture / Unknown 07/18/2024 5:42 PM EST 07/18/2024 6:02 PM EST Demetrius Vitale MD LAB BLOOD ORDERABLE S Performing Organization Address City/[facility]/ZIP Co de Phone Number [facility] [address] [place] [address], * ECG 12 lead (07/18/2024 3:50 PM EST) Ventricular Rate ECG 71 BPM GEMUSE Atrial Rate 71 BPM GEMUSE P-R Interval 154 ms GEMUSE QRS Duration 84 ms GEMUSE Q-T Interval 408 ms GEMUSE QTc 443 ms GEMUSE P Wave [place] 62 degrees GEMUSE R [place] 8 degrees GEMUSE T [place] 60 degrees GEMUSE ECG Interpretation Normal sinus rhythm Normal ECG No previous ECGs available Confirmed by Natalie CORRIGAN JOHN ([id number]) on 07/19/2024 10:01:04 AM GEMUSE 07/18/2024 3:50 PM EST 07/19/2024 10:01 AM EST Demetrius Vitale MD ECG ORDERABLES GEMUSE from Last 3 Months Care Teams Contract Administrative Assistant Relationship Specialty Start Date End Date Physician, No Pcp PCP - General 07/18/24
--- OUTSIDE RECORDS SUMMARY | 2024-07-23 19:36 | XMS_ITS | Encounter Summary ---
Author Organization [employer] Address [address] [place] [address] Care Team Providers Care Printer Apprentice Name Role Phone Unavailable Primary Care Provider Unavailabl e Reason for Visit * Reason Onset Date Comments New patient 07/04/2023 Encounter Details Date Type Department Care Team (Late st Contact Info) Description 07/04/2023 Telephone [facility] [address], [place] [phone] Eduar Rodriguez MD [address] [place], [place] [phone] New patient Social History Tobacco Use Types Packs/Day Years Used Date Smoking Tobacco: Never Assessed Sex and Gender Information Value Date Recorded Sex Assigned at Not on file Legal Sex Male 2:31 PM EST Gender Identity Not on file Sexual Orientation Not on file documented as of this encounter Miscellaneous Notes * Telephone Encounter - Cristino Steele - 07/04/2023 2:31 PM EST Tc to pt , to advise we do not take insurance, if still interested in becoming a patient with the facility to please call [facility] and switch insurance to C3, once done to give a call back to startprocess of becoming a Patient. Pt Understood. documented in this encounter Plan of Treatment Not on file documented as of this encounter Visit Diagnoses Not on filedocumented in this encounter
--- OUTSIDE RECORDS SUMMARY | 2024-07-23 19:36 | XMS_ITS | Encounter Summary ---
Author Organization [employer] Address [address] [place] [address] Care Team Providers Care Garment Looper Name Role Phone Physician, No Pcp Primary Care Provider Unavaila ble Reason for Visit * Reason Comments Chest Pain Left sided chest hoa n since Encounter Details Date Type Department Care Team (Late st Contact Info) Description 07/18/2024 3:36 PM EST - 07/19/2024 [facility] Emergency [address] [place] [address] Discharge Disposition: Left Against Medical Advice Social History Tobacco Use Types Packs/Day Years Used Date Smoking Tobacco: Never Smokeless Tobacco: Never Tobacco Cessation:Counseling Given: Not Answered Sex and Gender Information Value Date Recorded Sex Assigned at Not on file Gender Identity Not on file Sexual Orientation Not on file Job Start Date Occupation Industry Not on file Not on file Not on file documented as of this encounter Last Filed Vital Signs Vital Sign Reading [...] Mass Index 26.91 07/18/2024 3:53 PM EST documented in this encounter Discharge Disposition Disposition Code Departure Means Destination Left Against Medical Advice documented in this encounter Progress Notes * Brianna Kuo, RN - 07/18/2024 3:56 PM EST Left chest pressure off and on over the last 3 days . Pt reports it started with some numbness in his lips and face and then in his left arm and hand. Pt reports the numbness lasted only 1 min . Shortly before the brief episode of numbness pt h=was having chest pressure. Pt also reporting generalized weakness and feeling tired documented in this encounter Plan of Treatment Not on file documented as of this encounter Procedures Procedure Name Priority Date/Time Associated Diagnosis Comments XR CHEST 2 VIEWS STAT 07/18/2024 5:50 PM EST TROPONIN I HIGH SENSITIVITY STAT 07/18/2024 5:42 PM EST CBC WITH AUTO DIFFERENTIAL STAT 07/18/2024 5:42 PM EST CBC AND DIFFERENTIAL STAT 07/18/2024 5:42 PM EST B-TYPE NATRIURETIC PEPTIDE STAT 07/18/2024 5:42 PM EST MAGNESIUM STAT 07/18/2024 5:42 PM EST LIPASE STAT 07/18/2024 5:42 PM EST COMPREHENSIVE METABOLIC PANEL STAT 07/18/2024 5:42 PM EST ECG 12-LEAD STAT 07/18/2024 3:50 PM EST documented in this encounter Results * XR Chest 2 Views (07/18/2024 5:50 PM EST) Anatomical Region Laterality Modality Body Radiographic Li ging 07/19/2024 10:1 6 AM EST Impressions 07/19/2024 10:16 AM EST Impression: No active pulmonary process identified. Telerad DEDE ([id number]) -------- FINAL REPORT -------- Dictated By: Xochitl Baig Dictated Date: 07/19/2024 10:16 ET Assigned Physician: Xochitl Baig Reviewed and Electronically Signed By: Xochitl Baig Signed Date: 07/19/2024 10:16 ET Workstation ID: [id number] Transcribed By: Self Edit Transcribed Date: 07/19/2024 [...] No active pulmonary process identified. Telerad PA ([id number]) -------- FINAL REPORT -------- Dictated By: Xochitl Baig Dictated Date: 07/19/2024 10:16 ET Assigned Physician: Xochitl Baig Reviewed and Electronically Signed By: Xochitl Baig Signed Date: 07/19/2024 10:16 ET Workstation ID: [id number] Transcribed By: Self Edit Transcribed Date: 07/19/2024 10:16 ET Demetrius Vitale MD IMG XR PROCEDURES * (ABNORMAL) CBC auto differential (07/18/2024 5:42 PM EST) WBC 8.2 4.8 - 10.8 [facility] LAB HEMETOLOGY METHOD 07/18/2024 6:08 PM EST [facility] RBC 5.20 4.50 - 5.50 M/[facility] LAB HEMETOLOGY METHOD 07/18/2024 6:08 PM EST [facility] Hemoglobin 16.5 13.5 - 17.5 g/dL LAB HEMETOLOGY METHOD 07/18/2024 6:08 PM [facility] Hematocrit 47.9 42.0 - 54.0 % LAB HEMETOLOGY METHOD 07/18/2024 6:08 PM [facility] MCV 92.6 79.0 - 98.0 FL LAB HEMETOLOGY METHOD 07/18/2024 6:08 PM [facility] MCH 31.9 27.0 - 32.0 pcg LAB HEMETOLOGY METHOD 07/18/2024 6:08 PM [facility] MCHC 34.4 32.0 - 37.0 g/dL LAB HEMETOLOGY METHOD 07/18/2024 6:08 PM [facility] RDW 12.0 11.0 - 15.0 % LAB HEMETOLOGY METHOD 07/18/2024 6:08 PM [facility] Platelets 212 130 - 400 K/mcL LAB HEMETOLOGY METHOD 07/18/2024 6:08 PM [facility] MPV 11.2(H) 7.0 - 11.0 FL LAB HEMETOLOGY METHOD 07/18/2024 6:08 PM [facility] NRBC 0.0 <1.0 % LAB HEMETOLOGY METHOD 07/18/2024 6:08 PM [facility] NRBC Absolute 0.00 <0.10 K/mcL LAB HEMETOLOGY METHOD 07/18/2024 6:08 PM [facility] Neutrophils Relative 62.1 % LAB HEMETOLOGY METHOD 07/18/2024 6:08 PM [facility] Lymphocytes Relative 26.4 % LAB HEMETOLOGY METHOD 07/18/2024 6:08 PM [facility] Monocytes Relative 9.7 % LAB HEMETOLOGY METHOD 07/18/2024 6:08 PM [facility] Eosinophils Relative 1.0 % LAB HEMETOLOGY METHOD 07/18/2024 6:08 PM [facility] Basophils Relative 0.6 % LAB HEMETOLOGY METHOD 07/18/2024 6:08 PM [facility] Immature Granulocytes Relative 0.2 % LAB HEMETOLOGY METHOD 07/18/2024 6:08 PM [facility] Neutrophils Absolute 5.06 1.50 - 7.00 K/mcL LAB HEMETOLOGY METHOD 07/18/2024 6:08 PM [facility] Lymphocytes Absolute 2.15 1.00 - 5.00 K/mcL LAB HEMETOLOGY METHOD 07/18/2024 6:08 PM [facility] Monocytes Absolute 0.79 0.20 - 1.00 K/mcL LAB HEMETOLOGY METHOD 07/18/2024 6:08 PM [facility] Eosinophils Absolute 0.08 0.00 - 0.50 K/mcL LAB HEMETOLOGY METHOD 07/18/2024 6:08 PM [facility] Basophils Absolute 0.05 0.00 - 0.20 K/mcL LAB HEMETOLOGY METHOD 07/18/2024 6:08 PM [facility] Immature Granulocytes Absolute 0.02 0.00 - 0.03 K/mcL LAB HEMETOLOGY METHOD 07/18/2024 6:08 PM [facility] Blood Venous blood specimen / Unknown Venipuncture / Unknown 07/18/2024 5:42 PM EST 07/18/2024 6:02 PM EST Demetrius Vitale MD LAB BLOOD ORDERABLE S [facility] [address] [place] [address], * Troponin I high sensitivity (07/18/2024 5:42 PM EST) [facility] High Sensitivity Troponin I 7 <=79 ng/L LAB CHEMISTRY METHOD 07/18/2024 6:31 PM EST [facility] Blood Venous blood specimen / Unknown Venipuncture / Unknown 07/18/2024 5:42 PM EST 07/18/2024 6:02 PM EST Narrative [facility] - 07/18/2024 6:31 PM EST High levels of biotin in samples may falsely decrease hsTroponin values. ??Use caution when interpreting hsTroponin results in patients taking biotin who exhibit renal impairment (eGFR <60) or in patients taking more than 20 mg/day of biotin. Demetrius Vitale MD LAB BLOOD ORDERABLE S Performing Organization Address [facility]/ZIP Co de Phone Number [facility] [address] [place] [address], * B-type natriuretic peptide (07/18/2024 5:42 PM EST) [facility] BNP 6 <=100 pcg/mL LAB CHEMISTRY METHOD 07/18/2024 6:39 PM EST [facility] Blood Venous blood specimen / Unknown Venipuncture / Unknown 07/18/2024 5:42 PM EST 07/18/2024 6:02 PM EST Demetrius Vitale MD LAB BLOOD ORDERABLE S [facility] [address] [place] [address], [place] [phone] * Magnesium (07/18/2024 5:42 PM EST) [facility] Magnesium 2.2 1.9 - 2.6 mg/dL LAB CHEMISTRY METHOD 07/18/2024 6:36 PM EST [facility] Blood Venous blood specimen / Unknown Venipuncture / Unknown 07/18/2024 5:42 PM EST 07/18/2024 6:02 PM EST Demetrius Vitale MD LAB BLOOD ORDERABLE S Performing Organization Address City/[facility]/ZIP Co de Phone Number [facility] [address] [place] [address], [place] [phone] * Lipase (07/18/2024 5:42 PM EST) Pathologist [facility] Lipase 44 13 - 75 unit/L LAB CHEMISTRY METHOD 07/18/2024 6:36 PM [facility] Blood Venous blood specimen / Unknown Venipuncture / Unknown 07/18/2024 5:42 PM EST 07/18/2024 6:02 PM EST Demetrius Vitale MD LAB BLOOD ORDERABLE S Performing Organization Address [facility]/ZIP Co de Phone Number [facility] [address] [place] [address], [place] [phone] * Comprehensive metabolic panel (07/18/2024 5:42 PM EST) [facility] Sodium 138 133 - 145 mmol/L LAB CHEMISTRY METHOD 07/18/2024 6:36 PM [facility] Potassium 4.1 3.5 - 5.5 mmol/L LAB CHEMISTRY METHOD 07/18/2024 6:36 PM [facility] Chloride 106 96 - 110 mmol/L LAB CHEMISTRY METHOD 07/18/2024 6:36 PM [facility] CO2 27 21 - 32 mmol/L LAB CHEMISTRY METHOD 07/18/2024 6:36 PM [facility] Anion Gap 5 3 - 11 LAB CHEMISTRY METHOD 07/18/2024 6:36 PM [facility] Glucose 94 70 - 100 mg/dL LAB CHEMISTRY METHOD 07/18/2024 6:36 PM [facility] BUN 20 5 - 25 mg/dL LAB CHEMISTRY METHOD 07/18/2024 6:36 PM [facility] Creatinine 0.87 0.70 - 1.30 mg/dL LAB CHEMISTRY METHOD 07/18/2024 6:36 PM [facility] eGFR 96 >=60 mL/min/1. 73m2 LAB CHEMISTRY METHOD 07/18/2024 6:36 PM [facility] Comment:Calculation based on the??Chronic Kidney Disease Epidemiology Collaboration (CKD-EPI) equation refit??without adjustment for race. BUN/Creatinine Ratio 23.0 LAB CHEMISTRY METHOD 07/18/2024 6:36 PM [facility] Calcium 9.4 8.5 - 10.5 mg/dL LAB CHEMISTRY METHOD 07/18/2024 6:36 PM [facility] AST (SGOT) 21 10 - 42 unit/L LAB CHEMISTRY METHOD 07/18/2024 6:36 PM [facility] ALT (SGPT) 52 10 - 60 unit/L LAB CHEMISTRY METHOD 07/18/2024 6:36 PM [facility] Alkaline Phosphatase 76 42 - 121 unit/L LAB CHEMISTRY METHOD 07/18/2024 6:36 PM [facility] Total Protein 7.5 6.0 - 8.0 g/dL LAB CHEMISTRY METHOD 07/18/2024 6:36 PM [facility] Albumin 4.0 3.2 - 5.0 g/dL LAB CHEMISTRY METHOD 07/18/2024 6:36 PM [facility] Total Bilirubin 0.3 0.0 - 1.4 mg/dL LAB CHEMISTRY METHOD 07/18/2024 6:36 PM [facility] Blood Venous blood specimen / Unknown Venipuncture / Unknown 07/18/2024 5:42 PM EST 07/18/2024 6:02 PM EST Demetrius Vitale MD LAB BLOOD ORDERABLE S [facility] [address] [place] [address], * ECG 12 lead (07/18/2024 3:50 PM EST) Ventricular Rate ECG 71 BPM GEMUSE Atrial Rate 71 BPM GEMUSE P-R Interval 154 ms GEMUSE QRS Duration 84 ms GEMUSE Q-T Interval 408 ms GEMUSE QTc 443 ms GEMUSE P Wave [place] 62 degrees GEMUSE R [place] 8 degrees GEMUSE T [place] 60 degrees GEMUSE ECG Interpretation Normal sinus rhythm Normal ECG No previous ECGs available Confirmed by Natalie CORRIGAN JOHN ([id number]) on 07/19/2024 10:01:04 AM GEMUSE 07/18/2024 3:50 PM EST 07/19/2024 10:01 AM EST Demetrius Vitale MD ECG ORDERABLES GEMUSE documented in this encounter Visit Diagnoses Not on filedocumented in this encounter Orders EKG Orders Without Results Count Last Ordered D ate First Ordered Date ECG 12-LEAD 1 07/18/2024 documented in this encounter Care Teams Garment Looper Relationship Specialty Start Date End Date Physician, No Pcp PCP - General 07/18/24 documented as of this encounter
--- OUTSIDE RECORDS SUMMARY | 2024-07-23 19:36 | XMS_ITS | Clinical Summary ---
Author Organization [employer] Address [address] [place] [address] Care Team Providers Care Management Instructor Name Role Phone Unavailable Primary Care Provider Unavailabl e Social History Tobacco Use Types Packs/Day Years Used Date Smoking Tobacco: Never Assessed Sex and Gender Information Value Date Recorded Sex Assigned at Not on file Legal Sex Male 2:31 PM EST Gender Identity Not on file Sexual Orientation Not on file Plan of Treatment Health Maintenance Due Date Last Done Comments CT Colonography 1958 Colonoscopy 1958 Colorectal Cancer Screening 1958 Depression Screening 1958 FIT DNA/Cologuard 1958 FIT 1958 FOBT 1958 Lipid Panel 1958 SDOH Screening 1958 Sigmoidoscopy 1958 Alcohol/Substance Use Screening 1970 Tobacco Screening 1970 Hepatitis C Screening 1976 DTaP/Tdap/Td Vaccines (1 - Tdap) 1977 Zoster Vaccines (1 of 2) 2008 Pneumococcal Vaccine: 50+ Ye ars (1 of 1 - PCV) 11/03/2023 COVID-19 Vaccine (1 - 2023-2 5 season) 2024 Influenza Vaccine (#1) 2024 RSV Patients and Pa tients Aged 60 years or older (1 - 1-dose 75+ series) 2033 HIB Vaccines Aged Out No longer eligi [...] patient's age to complete this topic Meningococcal Vaccine Aged Out No yazmin stacey eligible based on patient's age to complete this topic RSV under 20 months Aged Out No longe r eligible based on patient's age to complete this topic Rotavirus Vaccines Aged Out No longer eligible based on patient's age to complete this topic
== END 2024-07-23 18:44 | disposition home or self-care (01) ==
PROVIDERS: Physician Assistant; Physician Assistant Medical; Emergency Provider Emergency Medicine
DX: R07.9 Chest pain, unspecified (principal); R06.02 Shortness of breath; R03.0 Elevated blood-pressure reading, without diagnosis of hypertension; R91.1 Solitary pulmonary nodule; Z03.818 Encounter for observation for suspected exposure to other biological agents ruled out
CPT/HCPCS: 0241U; 36415; 71046; 71260; 80053; 83690; 83880; 84484; 85025; 85610; 93005; 99284; Q9967

== ENCOUNTER → 2024-07-23 10:48 | Outpatient (BNV) | payer MEDICARE, SELFPAY | PROVIDERS: Emergency Provider Emergency Medicine; Visit Provider Internal Medicine | DX: R07.9 Chest pain, unspecified (principal) | CPT/HCPCS: 93010 ==

== ENCOUNTER → 2024-07-23 11:02 | Outpatient (BNV) | payer MEDICARE, SELFPAY | PROVIDERS: Visit Provider Radiology Diagnostic Radiology | DX: R07.9 Chest pain, unspecified (principal) | CPT/HCPCS: 71046; 71260 ==

== ENCOUNTER 2024-10-06 13:54 | Outpatient (AMB) | payer MEDICARE, MEDICAID, SELFPAY ==
--- NOTE | 2024-10-06 13:56 | MHC.PC.OV ---
Vital Signs 10/06/24 13:59 Height 5 ft 7.72 in Weight 170 lb 2 oz BMI 26.1 BP 120/80 Blood Pressure Location Lt brachial Position Sitting Pulse 77 Pulse Source Pulse Oximeter Temp 97.5 F Temp Source Temporal Artery Scan Pulse Oximetry (%) 96 Oxygen Delivery Method Room Air Intake Visit Reasons: establish care Intake Note: Patient is a new patient here to establish care for HTN, Anxiety. Transferring care from [facility]. Medical records have been requested and have not received. Contracts Manager Required: No Metal Cleaner: Not Required per policy Accompanied by: Self / Same As Patient Allergies No Known Allergies Allergy (Verified 10/06/24 14:18) Medication List - Last Reconciled 10/06/24 by Romana Cruz PA-C amlodipine 5 mg PO DAILY 30 days omeprazole 20 mg PO BID Tobacco use date assessed: 10/06/24 Fall risk assessment: No Falls in past year Last assessed Fall Risk: 10/06/24 Dental Screening Dental Screen Date: 10/06/24 Did you have a dental visit in the last 12 months?: No Did you have a dental problem in the last 6 months where you did not have access to dental care?: No Was dental information given to patient?: No HPI establish care HPI Details 63-year-old male coming to the office for the 1st time.?In review of the notes, patient was seen in [facility] 07/23/2024 for chest pain, workup was largely negative CAT scan of the chest revealing solitary 8 mm left lung nodule in the left upper lobe.? Patient was started on amlodipine for elevated blood pressure and refer to Cardiology. CT scan recommending follow up chest CT in 6-12 months.? Patient was last being seen by [facility] and [place] over 10 years ago. He is not up-to-date on his colonoscopy. He was recently diagnosed with hypertension which has been well managed on the amlodipine 5 mg. He has been following with General surgery through [facility] for monitoring of gallbladder polyps. He does report a chronic cough aggravated by environmental tobacco smoke cough has been ongoing for several years. Positive screening for anxiety today, although depression was negative. The patient consider therapy for anxiety management which may be amplified by social isolation. colonoscopy: is due for colonoscopy - referral was placed today [facility] Medical History Gallbladder polyp No pertinent past medical history Surgical History No pertinent past surgical history Family History Other Substance use disorder Social History Housing: Apartment Unable to assess alcohol history related to: Unknown Alcohol intake: current Alcohol intake frequency: a few times a week Patient Tobacco Use Status: Never used Tobacco e-Cigarette/Vaping Use: Never Used Second Hand Smoke Exposure: No service: No Current occupational status: retired Cognitive needs: No Hearing needs: No Vision needs: Yes (Reading Glasses) Questionnaire PHQ-9 Over the last 2 weeks, how often have you been bothered by any of the following problems? 1. Little interest or pleasure in doing things: not at all 2. Feeling down, depressed, or hopeless: not at all 3. Trouble falling or staying asleep, or sleeping too much: not at all 4. Feeling tired or having little energy: not at all 5. Poor appetite or overeating: not at all 6. Feeling bad about yourself - or that you are a failure or have let yourself or your family down: not at all 7. Trouble concentrating on things, such as reading the newspaper or watching television: not at all 8. Moving or speaking so slowly that other people could have noticed. Or the opposite - being so fidgety or restless that you have been moving around a lot more than usual: not at all 9. Thoughts that you would be better off or of hurting yourself in some way: not at all Total score: 0 Depression Screening Interpretation: Negative Depression Screening Done: Yes Source: Developed by Drs. Houston Choudhury, Kristine Grimaldo, Jordi Flores and colleagues, with an educational syeda from [employer]. Thrive Questionnaire Date Thrive assessed: 09/29/24 I am a: Patient What is your living situation today?: I choose not to answer this question Within the past 12 months, did the food you bought not last and you didn't have the money to get more?: Sometimes True Within the past 12 months, did you worry whether your food would run out before you got money to buy more?: Sometimes True Do you have trouble paying for medicines?: No Do you have trouble getting transportation to medical appointments?: I choose not to answer this question Do you have trouble paying your heating and electricity bill?: No Do you have trouble taking care of your child, family member or friend?: I choose not to answer this question Do you have trouble with day-to-day activities such as bathing, preparing meals, shopping, managing finances, etc.?: No Are you currently unemployed and looking for a job?: I choose not to answer this question Are you interested in more education?: No Currently or been in a relationship where the following occur: I choose not to answer THRIVE Score: 2 AUDIT C Alcohol Use Questionnaire (AUDIT-C) 1. How often do you have a drink containing alcohol?: 2-4 times a month 2. How many drinks containing alcohol do you have on a typical day when you are drinking?: 3 or 4 3. How often do you have six or more drinks on one occasion?: Never Total Score: 3 Score Reviewed/Action Taken: Yes INESSA-7 AMB Questionnaire INESSA-7 Date INESSA - 7 assessed: 10/06/24 Feeling nervous, anxious, or on edge: 3 = Nearly every day Not being able to stop or control worryin = Several days Worrying too much about different things: 3 = Nearly every day Trouble relaxin = More than half the days Being so restless that it is hard to sit still: 2 = More than half the days Becoming easily annoyed or irritable: 1 = Several days Feeling afraid as if something awful might happen: 2 = More than half the days Total INESSA-7 score (0-4 normal; 5-9 mild; 10-14 moderate; 15-21 severe): 14 Source: Developed by Drs. Houston Choudhury, Kristine Grimaldo, Jordi Flores and colleagues, with an educational syeda from [employer]. INESSA-7 Assessment Billing INESSA-7 Assessment Tool: INESSA-7 Assessment 36676 Review of Systems Const Denies body aches and Denies headache(s) Eyes Reports no additional complaints ENT Denies dizziness and Denies headache(s) Card Denies chest pain, Denies syncope, Denies edema, Denies irregular heart rhythm, Denies lightheadedness and Denies dyspnea Resp Reports cough, Denies hemoptysis, Denies excessive phlegm production and Denies dyspnea GI Denies abdominal pain, Denies nausea and Denies vomiting Reports no additional complaints Musc Reports no additional complaints and Denies abnormal gait Skin/Breast Reports system reviewed and no additional complaints, except as documented Neuro Denies abnormal gait, Denies dizziness, Denies syncope and Denies headache(s) Psych Reports no additional complaints Physical exam (Primary Care) Vital Signs: Last Vital Signs Temp 97.5 F 10/06/24 13:59 Pulse 77 10/06/24 13:59 BP 120/80 10/06/24 13:59 Pulse Ox 96 10/06/24 13:59 Oxygen Delivery Method Room Air 10/06/24 13:59 BMI result Body Mass Index 26.1 Tobacco/Smoking Status: Tobacco use Status Tobacco use date assessed 10/06/24 10/06/24 14:05 Patient Tobacco Use Status Never used Tobacco 10/06/24 14:12 e-Cigarette/Vaping Use Never Used 10/06/24 14:12 PHQ-9: PHQ-9 Score PHQ-9: Total score 0 10/06/24 14:05 Depression Screening Interpretation: Negative Thrive Assessment: Date of Thrive Assessment Date Thrive assessed 09/29/24 10/06/24 14:05 Currently or been in a relationship where the following occur: I choose not to answer Const General: cooperative, healthy appearing, comfortable and no acute distress Orientation/consciousness: patient oriented x3 HENMT Head: Yes normocephalic Ears: hearing grossly normal bilaterally General nose exam: Normal external nose present Eyes General: appearance normal, both eyes and all related structures Conjunctivae: conjunctivae normal Neck Neck: Yes full ROM and Yes no lymphadenopathy Resp Effort & Inspection: normal respiratory effort Auscultation: clear to auscultation bilaterally, no crackles, no rales, no rhonchi and no wheezes Cardio Rate: regular rate Rhythm: regular rhythm Skin General skin exam: no rashes or lesions noted Neuro General: patient oriented x3 Gait exam (Neuro): Normal gait present Extrem General: Yes normal to inspection, Yes full ROM and No edema Psych Affect: normal affect Attitude: cooperative Insight: Good insight present (Psych) Judgement: Good judgement present (Psych) Coding Level of Care Code New Pt Level 4 (98639) Diagnoses Lung nodule R91.1 GERD (gastroesophageal reflux disease) K21.9 Hypertension I10 Anxiety F41.9 Gallbladder polyp K82.4 Screening for hypercholesterolemia Z13.220 Cough R05.9 Additional Codes INESSA-7 Assessment Billing - INESSA-7 Assessment Tool: INESSA-7 Assessment 41710 ([id number]) Assessment & Plan Assessment & Plan (1) Lung nodule: Comment: CT scan 06/2024 Solitary 8 mm left lung nodule in the left upper lobe. ACR Fleischner Society recommendations (Guilhermehoannalise, et al. Radiology 2017; 284(1): 228-43) suggest the following: For patients with low risk of lung cancer, follow-up chest CT at 6-12 months. If stable, no further follow-up or an optional chest CT at 18-24 months if there is high index of suspicion Code(s): R91.1 - Solitary pulmonary nodule Category: Medical Plan: Patient having incidental finding of lung nodule on CAT scan recommending 6-12 month follow up from June. Order placed for CT scan of the chest to be completed in 3 months. (2) GERD (gastroesophageal reflux disease): Code(s): K21.9 - Gastro-esophageal reflux disease without esophagitis Category: Medical Plan: Avoid trigger foods such as citrus, tomato products, soda, caffeine, spicy foods and other foods that may be irritating to your stomach. Avoid laying flat 3-4 hours after eating and elevate the head of the bed 30 degrees to prevent acid from moving into the esophagus. Continue on omeprazole (3) Hypertension: Code(s): I10 - Essential (primary) hypertension Category: Medical Plan: Continue on current blood pressure medication. Avoid salt intake and encourage healthy diet and regular exercise. Blood pressure well controlled today (4) Anxiety: Code(s): F41.9 - Anxiety disorder, unspecified Category: Medical Plan: Patient endorsing feelings of anxiety on occasion. He feels they are well managed without medication at this time but feels he would benefit from having a therapist. Referral was placed to [facility] today. (5) Gallbladder polyp: Code(s): K82.4 - Cholesterolosis of gallbladder Category: Medical Plan: Continue to follow with General surgery for monitoring of gallbladder polyp. He has a repeat ultrasound to be scheduled for December and appointment to follow with General surgery (6) Screening for hypercholesterolemia: Code(s): Z13.220 - Encounter for screening for lipoid disorders Category: Medical Plan: Blood work orders placed today. (7) Cough: Code(s): R05.9 - Cough, unspecified Category: Medical Plan: Discussed with patient possible etiology of chronic cough including but not limited to; GERD, asthma, allergies. Plan to obtain PFT for further evaluation, patient feels his GERD is well managed at this time. Prescription also sent for Piper. Also discussed the possibility of coughing related to CT findings lung nodule plan to obtain repeat CT in 3 months. Plan The patient will have a follow-up CT scan scheduled in December to monitor the pulmonary nodule for any significant changes. Essential hypertension remains well-controlled with amlodipine treatment, supported by current stable readings. Management of GERD with omeprazole continues to be appropriate, addressing any symptoms effectively. Evaluation of gallbladder polyps will be conducted with an ultrasound in December. We will pursue a colonoscopy referral, given the extensive period since the last examination, to adhere to recommended screening intervals. A pulmonary function test is assigned to investigate potential asthma accounts for persistent cough. Pipre is prescribed to address respiratory symptoms potentially arising from environmental smoke exposure. A therapy referral is suggested to support any anxiety, complemented by health-maintenance monitoring through blood work. This note was constructed using voice recognition software. While every effort has been made to ensure accuracy and engineering laboratory technician, still areas may have been included sometimes these areas may affect the content or meeting of the given symptoms. Total time spent caring for the patient today was 30 minutes. This includes time spent before the visit reviewing the chart, time spent during the visit, and time spent after the visit and documentation. Patient was informed and verbally consented to the use of an ambient scribe for clinic note documentation during this visit. Orders: Orders TSH reflex Free T4 Today Z00.00 - Encounter for general adult medical examination without abnormal findings Free T4 (Free Thyroxine) Today Z00.00 - Encounter for general adult medical examination without abnormal findings Vitamin D 25-OH Total Today Z00.00 - Encounter for general adult medical examination without abnormal findings Lipid Panel Today Z13.220 - Encounter for screening for lipoid disorders PSA, Ultra Sensitive Today Z00.00 - Encounter for general adult medical examination without abnormal findings PFT pulmonary function test Today R05.9 - Cough, unspecified CT chest wo IV con 3 Months R91.1 - Solitary pulmonary nodule Comprehensive Met. Panel Today Z00.00 - Encounter for general adult medical examination without abnormal findings Vitamin B12 and Folate Today Z00.00 - Encounter for general adult medical examination without abnormal findings Referrals Counseling Referral F41.9 - Anxiety disorder, unspecified Gastroenterology Referral Z12.11 - Encounter for screening for malignant neoplasm of colon Medications: New fexofenadine (Piper Allergy) 180 mg PO DAILY 90 tabs 0RF Changed From amlodipine 5 mg PO DAILY 30 days 30 tabs 0RF To amlodipine 5 mg PO DAILY 90 tabs 2RF
[2024-10-06 13:59] VITALS: BP 120/80; PULSE 77; TEMP 36.4; O2SAT 96; BMI 26.1
--- OUTSIDE RECORDS SUMMARY | 2024-10-06 17:07 | XMS_ITS | Clinical Summary ---
Author Organization [employer] Address [address] [place] [address] Care Team Providers Care Lens Mounter Name Role Phone Unavailable Primary Care Provider [...] FIT 1958 FOBT 1958 Lipid Panel 1958 Sigmoidoscopy 1958 Alcohol/Substance Use Screening 1970 Tobacco Screening 1970 DTaP/Tdap/Td Vaccines (1 - Tdap) 1977 Pneumococcal Vaccine: 50+ Ye ars (1 of 1 - PCV) 2008 Zoster Vaccines (1 of 2) 2008 COVID-19 Vaccine ( - 2023-2 5 season) 2024 Influenza Vaccine [...]
--- OUTSIDE RECORDS SUMMARY | 2024-10-06 17:08 | XMS_ITS | Clinical Summary ---
Author Organization [facility] Address [address] [place] [address] Phone Care Team Providers Care Power Chisel Operator Name Role Phone Physician, No Pcp Primary Care Provider Unavaila ble Allergies No known active allergies Encounters Date Type Department Care Team Description 07/18/2024 3:36 PM EST - 07/19/2024 Emergency [facility] Emergency [address] [place] [address] Discharge Disposition: Left Against Medical Advice from Last 3 Months Medical History Medical History Date Comments HTN (hypertension) Social History Tobacco Use Types Packs/Day Years Used Date Smoking Tobacco: Never Smokeless Tobacco: Never Tobacco Cessation:Counseling Given: Not Answered Sex and Gender Information Value Date Recorded Sex Assigned at Not on file Legal Sex Male 2:34 PM EST Gender Identity Not on file Sexual Orientation Not on file Obstetrics History Last Filed [...] Health Maintenance Due Date Last Done Comments Pneumococcal Vaccine: 50+ Years (1 of 1 - PCV) 2008 Cholesterol Screening (Lipid Panel) 08/11/2022 Colorectal Cancer Screening: Colonoscopy 08/11/2022 Depression Screening 08/11/2022 Hepatitis C Screening 08/11/2022 Medicare Annual Wellness Visit 08/11/2022 Social Influencers of Health Screening 08/11/2022 Falls Risk Assessment 11/03/2023 COVID-19 Vaccine (2 - 2023-2 5 season) 2024 07/04/2022 Influenza Vaccine (Season Ended) 2025 DTaP,Tdap,and Td Vaccines (2 - Td or Tdap) 12/10/2031 12/09/2021 RSV Immunization Adult Patients (1 - 1-dose 75+ series) 2033 Zoster [...] patient's age to complete this topic Meningococcal B Vaccine Aged Out No l onger eligible based on patient's age to complete [...] No active pulmonary process identified. Telerad PA ([id number]) -------- FINAL REPORT -------- Dictated By: Xochitl Baig Dictated Date: 07/19/2024 10:16 ET Assigned Physician: Xochitl Baig Reviewed and Electronically Signed By: Xochitl Baig Signed Date: 07/19/2024 10:16 ET Workstation ID: [id number] Transcribed By: Self Edit Transcribed Date: 07/19/2024 [...] No active pulmonary process identified. [facility]elerad DEDE ([id number]) -------- FINAL REPORT -------- Dictated By: Xochitl Baig Dictated Date: 07/19/2024 10:16 ET Assigned Physician: Xochitl Baig Reviewed and Electronically Signed By: Xochitl Baig Signed Date: 07/19/2024 10:16 ET Workstation ID: [id number] Transcribed By: Self Edit Transcribed Date: 07/19/2024 10:16 ET Demetrius Vitale MD IMG XR PROCEDURES Final Res ult * Troponin I high sensitivity (07/18/2024 5:42 PM EST) [facility] High Sensitivity Troponin I 7 <=79 ng/L LAB CHEMISTRY METHOD 07/18/2024 6:31 PM EST [facility] Blood Venous blood specimen / Unknown Venipuncture / Unknown 07/18/2024 5:42 PM EST 07/18/2024 6:02 PM EST Narrative [facility] - 07/18/2024 6:31 PM EST High levels of biotin in samples may falsely decrease hsTroponin values. ??Use caution when interpreting hsTroponin results in patients taking biotin who exhibit renal impairment (eGFR <60) or in patients taking more than 20 mg/day of biotin. Demetrius Vitale MD LAB BLOOD ORDERABLES Final Result [facility] [address] [place] [address], * (ABNORMAL) CBC auto differential (07/18/2024 5:42 PM EST) [facility] WBC 8.2 4.8 - 10.8 K/mcL LAB HEMETOLOGY METHOD 07/18/2024 6:08 PM EST [facility] RBC 5.20 4.50 - 5.50 M/mcL LAB HEMETOLOGY METHOD 07/18/2024 6:08 PM [facility] Hemoglobin 16.5 13.5 - 17.5 g/dL LAB HEMETOLOGY METHOD 07/18/2024 6:08 PM [facility] Hematocrit 47.9 42.0 - 54.0 % LAB HEMETOLOGY METHOD 07/18/2024 6:08 PM [facility] MCV 92.6 79.0 - 98.0 FL LAB HEMETOLOGY METHOD 07/18/2024 6:08 PM [facility] MCH 31.9 27.0 - 32.0 pcg LAB HEMETOLOGY METHOD 07/18/2024 6:08 PM [facility] MCHC 34.4 32.0 - 37.0 g/dL LAB HEMETOLOGY METHOD 07/18/2024 6:08 PM [facility] RDW 12.0 11.0 - 15.0 % LAB HEMETOLOGY METHOD 07/18/2024 6:08 PM [facility] Platelets 212 130 - 400 K/mcL LAB HEMETOLOGY METHOD 07/18/2024 6:08 PM [facility] MPV 11.2(H) 7.0 - 11.0 FL LAB HEMETOLOGY METHOD 07/18/2024 6:08 PM [facility] NRBC 0.0 <1.0 % LAB HEMETOLOGY METHOD 07/18/2024 6:08 PM [facility] NRBC Absolute 0.00 <0.10 K/mcL LAB HEMETOLOGY METHOD 07/18/2024 6:08 PM [facility] Neutrophils Relative 62.1 % LAB HEMETOLOGY METHOD 07/18/2024 6:08 PM [facility] Lymphocytes Relative 26.4 % LAB HEMETOLOGY METHOD 07/18/2024 6:08 PM EST [facility] Monocytes Relative 9.7 % LAB HEMETOLOGY METHOD 07/18/2024 6:08 PM [facility] Eosinophils Relative 1.0 % LAB HEMETOLOGY METHOD 07/18/2024 6:08 PM [facility] Basophils Relative 0.6 % LAB HEMETOLOGY METHOD 07/18/2024 6:08 PM [facility] Immature Granulocytes Relative 0.2 % LAB HEMETOLOGY METHOD 07/18/2024 6:08 PM [facility] Neutrophils Absolute 5.06 1.50 - 7.00 K/mcL LAB HEMETOLOGY METHOD 07/18/2024 6:08 PM [facility] Lymphocytes Absolute 2.15 1.00 - 5.00 K/mcL LAB HEMETOLOGY METHOD 07/18/2024 6:08 PM [facility] Monocytes Absolute 0.79 0.20 - 1.00 K/mcL LAB HEMETOLOGY METHOD 07/18/2024 6:08 PM [facility] Eosinophils Absolute 0.08 0.00 - 0.50 K/mcL LAB HEMETOLOGY METHOD 07/18/2024 6:08 PM [facility] Basophils Absolute 0.05 0.00 - 0.20 K/mcL LAB HEMETOLOGY METHOD 07/18/2024 6:08 PM [facility] Immature Granulocytes Absolute 0.02 0.00 - 0.03 K/mcL LAB HEMETOLOGY METHOD 07/18/2024 6:08 PM [facility] Blood Venous blood specimen / Unknown Venipuncture / Unknown 07/18/2024 5:42 PM EST 07/18/2024 6:02 PM EST us Demetrius Vitale MD LAB BLOOD ORDERABLES Final Result [facility] [address] [place] [address], * B-type natriuretic peptide (07/18/2024 5:42 PM EST) [facility] BNP 6 <=100 pcg/mL LAB CHEMISTRY METHOD 07/18/2024 6:39 PM EST [facility] Blood Venous blood specimen / Unknown Venipuncture / Unknown 07/18/2024 5:42 PM EST 07/18/2024 6:02 PM EST Demetrius Vitale MD LAB BLOOD ORDERABLES Final Result [facility] [address] [place] [address], * Magnesium (07/18/2024 5:42 PM EST) [facility] Magnesium 2.2 1.9 - 2.6 mg/dL LAB CHEMISTRY METHOD 07/18/2024 6:36 PM EST [facility] Blood Venous blood specimen / Unknown Venipuncture / Unknown 07/18/2024 5:42 PM EST 07/18/2024 6:02 PM EST Demetrius Vitale MD LAB BLOOD ORDERABLES Final Result [facility] [address] [place] [address], * Lipase (07/18/2024 5:42 PM EST) [facility] Lipase 44 13 - 75 unit/L LAB CHEMISTRY METHOD 07/18/2024 6:36 PM EST [facility] Blood Venous blood specimen / Unknown Venipuncture / Unknown 07/18/2024 5:42 PM EST 07/18/2024 6:02 PM EST Demetrius Vitale MD LAB BLOOD ORDERABLES Final Result [facility] [address] [place] [address], * Comprehensive metabolic panel (07/18/2024 5:42 PM EST) Sodium 138 133 - 145 mmol/L LAB CHEMISTRY METHOD 07/18/2024 6:36 PM [facility] Potassium 4.1 3.5 - 5.5 mmol/L LAB CHEMISTRY METHOD 07/18/2024 6:36 PM [facility] Chloride 106 96 - 110 mmol/L LAB CHEMISTRY METHOD 07/18/2024 6:36 PM [facility] CO2 27 21 - 32 mmol/L LAB CHEMISTRY METHOD 07/18/2024 6:36 PM [facility] Anion Gap 5 3 - 11 LAB CHEMISTRY METHOD 07/18/2024 6:36 PM [facility] Glucose 94 70 - 100 mg/dL LAB CHEMISTRY METHOD 07/18/2024 6:36 PM [facility] BUN 20 5 - 25 mg/dL LAB CHEMISTRY METHOD 07/18/2024 6:36 PM [facility] Creatinine 0.87 0.70 - 1.30 mg/dL LAB CHEMISTRY METHOD 07/18/2024 6:36 PM [facility] eGFR 96 >=60 mL/min/1. 73m2 LAB CHEMISTRY METHOD 07/18/2024 6:36 PM [facility] Comment:Calculation based on the??Chronic Kidney Disease Epidemiology Collaboration (CKD-EPI) equation refit??without adjustment for race. BUN/Creatinine Ratio 23.0 LAB CHEMISTRY METHOD 07/18/2024 6:36 PM [facility] Calcium 9.4 8.5 - 10.5 mg/dL LAB CHEMISTRY METHOD 07/18/2024 6:36 PM [facility] AST (SGOT) 21 10 - 42 unit/L LAB CHEMISTRY METHOD 07/18/2024 6:36 PM EST [facility] ALT (SGPT) 52 10 - 60 unit/L LAB CHEMISTRY METHOD 07/18/2024 6:36 PM EST [facility] Alkaline Phosphatase 76 42 - 121 unit/L LAB CHEMISTRY METHOD 07/18/2024 6:36 PM EST [facility] Total Protein 7.5 6.0 - 8.0 g/dL LAB CHEMISTRY METHOD 07/18/2024 6:36 PM EST [facility] Albumin 4.0 3.2 - 5.0 g/dL LAB CHEMISTRY METHOD 07/18/2024 6:36 PM [facility] Total Bilirubin 0.3 0.0 - 1.4 mg/dL LAB CHEMISTRY METHOD 07/18/2024 6:36 PM EST [facility] Blood Venous blood specimen / Unknown Venipuncture / Unknown 07/18/2024 5:42 PM EST 07/18/2024 6:02 PM EST us Demetrius Vitale MD LAB BLOOD ORDERABLES Final Result [facility] [address] [place] [address], * ECG 12 lead (07/18/2024 3:50 PM EST) Ventricular Rate ECG 71 BPM GEMUSE Atrial Rate 71 BPM GEMUSE P-R Interval 154 ms GEMUSE QRS Duration 84 ms GEMUSE Q-T Interval 408 ms GEMUSE QTc 443 ms GEMUSE P Wave Herald 62 degrees GEMUSE R Herald 8 degrees GEMUSE T Herald 60 degrees GEMUSE ECG Interpretation Normal sinus rhythm Normal ECG No previous ECGs available Confirmed by Natalie CORRIGAN JOHN ([id number]) on 07/19/2024 10:01:04 AM GEMUSE 07/18/2024 3:50 PM EST 07/19/2024 10:01 AM EST us Demetrius Vitale MD ECG ORDERABLES Final Resul t GEMUSE from Last 3 Months Insurance MEDICAID - [place] [employer] [place] [employer] Care Teams Power Chisel Operator Relationship Specialty Start Date End Date Physician, No Pcp PCP - General 07/18/24
--- OUTSIDE RECORDS SUMMARY | 2024-10-06 17:08 | XMS_ITS | Encounter Summary ---
Author Organization [facility] Address [address] [place] [address] Care Team Providers Care Technician Name Role Phone Unavailable Primary Care Provider Unavailabl e Reason for Visit * Reason Onset Date Comments New patient 07/04/2023 Encounter Details Date Type Department Care Team (Late st Contact Info) Description 07/04/2023 Telephone [facility] [address] [place], [place] [phone] Eduar Rodriguez MD [address] [place], [place] [phone] New patient Social History Tobacco Use Types [...] patient with the facility to please call [facility] and switch insurance to C3, once done to give a call back to startprocess of becoming a Patient. Pt Understood. documented in this encounter Plan of Treatment Not on file documented as of this encounter Visit Diagnoses Not on filedocumented in this encounter
== END 2024-10-06 14:40 | disposition home or self-care (01) ==
LOC: HO.HMCH 13:54
DX: R91.1 Solitary pulmonary nodule (principal); K21.9 Gastro-esophageal reflux disease without esophagitis; I10 Essential (primary) hypertension; F41.9 Anxiety disorder, unspecified; K82.4 Cholesterolosis of gallbladder; Z13.220 Encounter for screening for lipoid disorders; R05.9 Cough, unspecified

== ENCOUNTER → 2024-10-06 13:54 | Outpatient (BNVA) | payer MEDICARE, SELFPAY | DX: R91.1 Solitary pulmonary nodule (principal); K21.9 Gastro-esophageal reflux disease without esophagitis; F41.9 Anxiety disorder, unspecified; K82.4 Cholesterolosis of gallbladder; R05.9 Cough, unspecified; I10 Essential (primary) hypertension | CPT/HCPCS: 96127; 99202 ==

== ENCOUNTER 2024-11-03 16:41 | Outpatient (REF) | payer MEDICARE, MEDICAID, SELFPAY ==
--- NOTE | ~2024-11-03 | CT_ITS ---
CLINICAL HISTORY: R91.1 - Solitary pulmonary nodule --- Additional Notes or Special Instructions: Shagufta itary 8 mm left lung nodule in the left upper lobe. CT chest without contrast Comparison: CT/IL/SR - CT CHEST W IV CON - 07/23/24 16:27 EST Findings: The heart is normal size. The visualized thyroid and mediastinum are unremarkable. There is a calcified granuloma in the left upper lobe. Perifissural nodule in the left upper lobe is again noted and unchanged in size measuring 9 mm in greatest diameter. There is hepatic steatosis. The bones are intact. No new nodules are noted. IMPRESSION: 9 mm perifissural nodule is unchanged. According to the Fleischner criteria: 9 mm or larger nodules should consider 3-[address] follow-up. For low risk 18-24 month follow-up is optional, whereas for high risk it is needed. As the initial part of the protocol has been performed, and if the patient is at low risk, an 18-24 month follow-up examination is optional but necessary if the patient is at high-risk. This document has been electronically signed by: Terrell Lowe MD on 11/04/2024 12:09:52
--- OUTSIDE RECORDS SUMMARY | 2024-11-03 16:43 | XMS_ITS | Encounter Summary ---
Author Organization [facility] Address [address] [place] [address] Care Team Providers Care Repeat Chief Name Role Phone Unavailable Primary Care Provider Unavailabl e Reason for Visit * Reason Onset Date Comments New patient 07/04/2023 Encounter Details Date Type Department Care Team (Late st Contact Info) Description 07/04/2023 Telephone [facility] [address] [place], [place] [phone] Eduar Rodriguez MD [address] [place], [place] [phone] New patient Social History Tobacco Use Types [...] patient with the facility to please call [facility] and switch insurance to C3, once done to give a call back to startprocess of becoming a Patient. Pt Understood. documented in this encounter Plan of Treatment Not on file documented as of this encounter Visit Diagnoses Not on filedocumented in this encounter
== END 2024-11-03 16:42 | disposition home or self-care (01) ==
LOC: HO.CT 16:41
DX: R91.1 Solitary pulmonary nodule (principal)
CPT/HCPCS: 71250

== ENCOUNTER → 2024-11-03 16:43 | Outpatient (BNV) | payer MEDICARE, MEDICAID, SELFPAY | PROVIDERS: Visit Provider Radiology Diagnostic Radiology | DX: R91.1 Solitary pulmonary nodule (principal) | CPT/HCPCS: 71250 ==

== ENCOUNTER 2024-11-19 07:58 | Outpatient (REF) | payer MEDICARE, MEDICAID, SELFPAY ==
--- OUTSIDE RECORDS SUMMARY | 2024-11-19 08:00 | XMS_ITS | Clinical Summary ---
Author Organization [employer] Address [address] [place] [address] Care Team Providers Care Ceo & Founder Name Role Phone Unavailable Primary Care Provider [...] topic Meningococcal Vaccine Aged Out No yazmin satcey eligible based on patient's age to complete this topic RSV under 20 months Aged Out No longe r eligible based on patient's age to complete this topic Rotavirus Vaccines Aged Out No longer eligible based on patient's age to complete this topic
--- NOTE | 2024-11-19 08:25 | PFT_ITS ---
Indication: Cough Spirometry [FEV1 to FVC 77%; FEV1 3.54 L; FVC 4.61 L. No significant response to bronchodilators noted.] Lung Volumes [Total lung capacity 93% predicted] Diffusion Capacity [Diffusing capacity 97% predicted] Comparisons [none] Interpretation [No obstructive nor restrictive ventilatory defects identified. No significant response to bronchodilators noted. Lung volumes are normal and diffusing capacity also within normal limits. No clear etiology for the cough symptom. Clinical correlation warranted.] MTDD
[2024-11-19 09:11] VITALS: PULSE 68; O2SAT 97
== END 2024-11-19 07:59 | disposition home or self-care (01) ==
LOC: HO.RESP 07:58
DX: R05.9 Cough, unspecified (principal)
CPT/HCPCS: 94010; 94640; 94727; 94729

== ENCOUNTER → 2024-11-19 08:25 | Outpatient (BNV) | payer MEDICARE, MEDICAID, SELFPAY | PROVIDERS: Visit Provider Hospitalist | DX: R05.9 Cough, unspecified (principal) | CPT/HCPCS: 94060; 94727; 94729 ==

== ENCOUNTER 2025-01-20 13:31 | Outpatient (AMB) | payer MEDICARE, MEDICAID, SELFPAY ==
--- NOTE | 2025-01-20 13:37 | MHC.PC.OV ---
Vital Signs 01/20/25 13:38 Height 5 ft 7.72 in Weight 171 lb BMI 26.2 BP 170/90 H Blood Pressure Location Lt brachial Position Sitting Pulse 88 Pulse Source Pulse Oximeter Temp 97.5 F Temp Source Temporal Artery Scan Pulse Oximetry (%) 96 Oxygen Delivery Method Room Air Intake Visit Reasons: annual exam Last Putter Away Required: No Accompanied by: Self / Same As Patient Allergies No Known Allergies Allergy (Verified 01/20/25 14:23) Medication List - Last Reconciled 01/20/25 by Romana Cruz PA-C amlodipine 5 mg PO DAILY fexofenadine (Piper Allergy) 180 mg PO DAILY omeprazole 20 mg PO BID Tobacco use date assessed: 01/20/25 Fall risk assessment: No Falls in past year Last assessed Fall Risk: 01/20/25 Dental Screening Dental Screen Date: 01/20/25 Did you have a dental visit in the last 12 months?: No Did you have a dental problem in the last 6 months where you did not have access to dental care?: No Was dental information given to patient?: No HPI annual exam HPI Details 64-year-old male with past medical history of anxiety, hypertension, GERD last seen 09/2024 coming in for annual exam. In review of the notes, patient completed pulmonary function testing which was completely normal. Chest CT was completed for pulmonary nodule which was unchanged recommending 3 to six-month CT follow up. The patient reports a history of elevated blood pressure readings, with the current reading being 170/90 mmHg. He is currently on amlodipine 5 mg, which will be increased to 10 mg due to persistently high readings. A CT scan was scheduled but postponed due to travel. The patient is set to follow up with pulmonology after the rescheduled scan in January. The patient reports improvement in cough symptoms with Piper, though he experienced increased symptoms while in [place], likely due to pollen exposure. The patient experiences occasional constipation, which he attributes to low water and fiber intake. PSA: reminded about blood work Colonoscopy: Missed most recent colonoscopy screening r/s to Mar Vaccines: Td UTD [facility] Medical History Gallbladder polyp No pertinent past medical history Surgical History No pertinent past surgical history Family History Other Substance use disorder Social History Housing: Apartment Unable to assess alcohol history related to: Unknown Alcohol intake: current Alcohol intake frequency: a few times a week Patient Tobacco Use Status: Never used Tobacco e-Cigarette/Vaping Use: Never Used Second Hand Smoke Exposure: No service: No Current occupational status: retired Cognitive needs: No Hearing needs: No Vision needs: Yes (Reading Glasses) Questionnaire PHQ-9 Over the last 2 weeks, how often have you been bothered by any of the following problems? 1. Little interest or pleasure in doing things: not at all 2. Feeling down, depressed, or hopeless: not at all 3. Trouble falling or staying asleep, or sleeping too much: several days 4. Feeling tired or having little energy: more than half the days 5. Poor appetite or overeating: not at all 6. Feeling bad about yourself - or that you are a failure or have let yourself or your family down: not at all 7. Trouble concentrating on things, such as reading the newspaper or watching television: not at all 8. Moving or speaking so slowly that other people could have noticed. Or the opposite - being so fidgety or restless that you have been moving around a lot more than usual: not at all 9. Thoughts that you would be better off or of hurting yourself in some way: not at all Total score: 3 Depression Screening Interpretation: Negative Depression Screening Done: Yes 13328 - PHQ-9 Billing: Yes Source: Developed by Drs. Houston Choudhury, Kristine Grimaldo, Jordi Flores and colleagues, with an educational syeda from [employer]. Thrive Questionnaire Date Thrive assessed: 01/20/25 I am a: Patient What is your living situation today?: I choose not to answer this question Within the past 12 months, did the food you bought not last and you didn't have the money to get more?: Sometimes True Within the past 12 months, did you worry whether your food would run out before you got money to buy more?: Sometimes True Do you have trouble paying for medicines?: No Do you have trouble getting transportation to medical appointments?: I choose not to answer this question Do you have trouble paying your heating and electricity bill?: No Do you have trouble taking care of your child, family member or friend?: I choose not to answer this question Do you have trouble with day-to-day activities such as bathing, preparing meals, shopping, managing finances, etc.?: No Are you currently unemployed and looking for a job?: I choose not to answer this question Are you interested in more education?: No Currently or been in a relationship where the following occur: I choose not to answer THRIVE Score: 2 INESSA-7 AMB Questionnaire INESSA-7 Date INESSA - 7 assessed: 01/20/25 Feeling nervous, anxious, or on edge: 3 = Nearly every day Not being able to stop or control worryin = Several days Worrying too much about different things: 3 = Nearly every day Trouble relaxin = Not at all Being so restless that it is hard to sit still: 2 = More than half the days Becoming easily annoyed or irritable: 1 = Several days Feeling afraid as if something awful might happen: 2 = More than half the days Total INESSA-7 score (0-4 normal; 5-9 mild; 10-14 moderate; 15-21 severe): 14 Source: Developed by Drs. Houston Choudhury, Kristine Grimaldo, Jordi Flores and colleagues, with an educational syeda from [employer]. Review of Systems Const Denies body aches, Denies fatigue, Denies fever(s), Denies frequent falls, Denies headache(s) and Denies weakness Eyes Reports no additional complaints and Denies change in vision ENT Denies dysphagia, Denies dizziness, Denies facial pain, Denies headache(s), Denies nasal congestion and Denies odynophagia Card Denies chest pain, Denies syncope, Denies irregular heart rhythm, Denies leg edema, Denies lightheadedness and Denies dyspnea Resp Denies cough and Denies dyspnea GI Denies abdominal pain, Reports constipation, Denies dysphagia, Denies dyspepsia, Denies diarrhea, Denies nausea, Denies odynophagia and Denies vomiting Denies urinary frequency, Denies urinary hesitancy and Denies urinary urgency Musc Denies back pain and Denies myalgias Skin/Breast Reports system reviewed and no additional complaints, except as documented Neuro Denies dizziness, Denies syncope, Denies frequent falls, Denies headache(s) and Denies weakness Psych Reports no additional complaints Endo Denies fatigue Physical exam (Primary Care) Vital Signs: Last Vital Signs Temp 97.5 F 01/20/25 13:38 Pulse 88 01/20/25 13:38 BP 170/90 H 01/20/25 13:38 Pulse Ox 96 01/20/25 13:38 Oxygen Delivery Method Room Air 01/20/25 13:38 BMI result Body Mass Index 26.2 Tobacco/Smoking Status: Tobacco use Status Tobacco use date assessed 01/20/25 01/20/25 13:45 Patient Tobacco Use Status Never used Tobacco 01/20/25 13:45 e-Cigarette/Vaping Use Never Used 01/20/25 13:45 PHQ-9: PHQ-9 Score PHQ-9: Total score 3 01/20/25 13:45 Depression Screening Interpretation: Negative Thrive Assessment: Date of Thrive Assessment Date Thrive assessed 01/20/25 01/20/25 13:45 Currently or been in a relationship where the following occur: I choose not to answer Const General: cooperative, healthy appearing, comfortable and no acute distress Orientation/consciousness: patient oriented x3 HENMT Head: Yes normocephalic Ears: hearing grossly normal bilaterally, external ears normal, TM's normal bilaterally and EAC's normal General nose exam: Normal external nose present Face and sinus: Yes normal facial exam and Yes sinuses nontender Mouth: Normal oral and palatal mucosa present and tongue normal Throat: Yes posterior oropharynx normal Eyes General: appearance normal, both eyes and all related structures Conjunctivae: conjunctivae normal Pupils: Equal, round and reactive pupils present EOM: EOMs intact bilaterally and No Nystagmus present Neck Neck: Yes normal visual inspection, Yes full ROM and Yes no lymphadenopathy Chest Chest palpation & inspection: normal inspection of the chest Resp Effort & Inspection: normal respiratory effort Auscultation: clear to auscultation bilaterally, no crackles, no rales, no rhonchi, no wheezes and breath sounds present Cardio Rate: regular rate Rhythm: regular rhythm Peripheral pulses: radial pulses present and dorsalis pedis present GI Inspection: Yes normal to inspection and No Abdominal wall edema Palpation (GI): Soft to palpation, not firm and nontender Auscultation: normal bowel sounds Rectal Exam - Male: Yes deferred General: Yes no CVA tenderness Back/Spine/Pelvis Back: no CVA tenderness Skin General skin exam: no rashes or lesions noted Neuro General: patient oriented x3 Cranial nerves: Yes Equal, round and reactive pupils present, Yes Midline tongue present, Yes Ability to bilaterally elevate shoulders present and No Nystagmus present Gait exam (Neuro): Normal gait present Extrem General: Yes normal to inspection, Yes full ROM, No no pedal edema and No edema Psych Speech and movement: Normal speech and movement present Affect: normal affect Insight: Good insight present (Psych) Judgement: Good judgement present (Psych) Coding Level of Care Code Est Pt Prev Care >65y(72087) Diagnoses Annual physical exam Z00.00 Lung nodule R91.1 GERD (gastroesophageal reflux disease) K21.9 Hypertension I10 Anxiety F41.9 Gallbladder polyp K82.4 Screening for hypercholesterolemia Z13.220 Cough R05.9 Additional Codes PHQ-9 - 65894 - PHQ-9 Billing: Yes ([id number]) Assessment & Plan Assessment & Plan (1) Annual physical exam: Code(s): Z00.00 - Encounter for general adult medical examination without abnormal findings Category: Medical Plan: Patient is overdue for several screenings including colonoscopy and PSA both of which have been ordered. I reminded the patient about his blood work which does include fasting labs. Vaccinations are up-to-date. Healthy diet and regular exercise is encouraged. Plan to follow up in 2 months to recheck blood pressure (2) Lung nodule: Comment: CT scan 06/2024 9 mm perifissural nodule is unchanged. According to the Fleischner criteria: 9 mm or larger nodules should consider 3-[address] follow-up. For low risk 18-24 month follow-up is optional, whereas for high risk it is needed. As the initial part of the protocol has been performed, and if the patient is at low risk, an 18-24 month follow-up examination is optional but necessary if the patient is at high-risk. Code(s): R91.1 - Solitary pulmonary nodule Category: Medical Plan: He has CT scheduled for [place] and pulmonology appointment to follow up. (3) GERD (gastroesophageal reflux disease): Code(s): K21.9 - Gastro-esophageal reflux disease without esophagitis Category: Medical Plan: Avoid trigger foods such as citrus, tomato products, soda, caffeine, spicy foods and other foods that may be irritating to your stomach. Avoid laying flat 3-4 hours after eating and elevate the head of the bed 30 degrees to prevent acid from moving into the esophagus. Continue on omeprazole (4) Hypertension: Code(s): I10 - Essential (primary) hypertension Category: Medical Plan: Blood pressure not well controlled today. Plan to increase amlodipine to 10 mg and advised patient to take blood pressures at home when prescription was sent to pharmacy for BP cuff. Avoid salt intake and encourage healthy diet and regular exercise. (5) Anxiety: Code(s): F41.9 - Anxiety disorder, unspecified Category: Medical Plan: Patient endorsing feelings of anxiety on occasion. He feels they are well managed without medication at this time and would like to hold off on counseling at this time. (6) Gallbladder polyp: Code(s): K82.4 - Cholesterolosis of gallbladder Category: Medical Plan: Continue to follow with General surgery for monitoring of gallbladder polyp. (7) Screening for hypercholesterolemia: Code(s): Z13.220 - Encounter for screening for lipoid disorders Category: Medical Plan: Reminded about blood work. (8) Cough: Code(s): R05.9 - Cough, unspecified Category: Medical Plan: Discussed with patient possible etiology of chronic cough including but not limited to; GERD, asthma, allergies. Cough has been improving with the Piper daily. PFT was negative. Plan The patient's hypertension management will be adjusted by increasing the amlodipine dosage to 10 mg. He is advised to monitor his blood pressure at home, and a blood pressure cuff will be provided through the pharmacy. Follow-up is scheduled in two months to reassess blood pressure control. The pulmonary nodule will be reassessed with a CT scan in January, followed by a pulmonology consultation to determine further management. The patient's allergic cough is currently managed with Piper, and he is advised to continue this medication. For anxiety, the patient has opted not to pursue counseling at this time. Dietary modifications are recommended to address constipation with an emphasis on increasing water and fiber intake and reducing fatty food consumption. Preventative care includes rescheduling the colonoscopy for March and completing pending blood work, including a prostate-specific antigen test. A referral to an eye doctor is made to monitor for hypertension-related changes. This note was constructed using voice recognition software. While every effort has been made to ensure accuracy and automotive collision estimator, still areas may have been included sometimes these areas may affect the content or meeting of the given symptoms. Total time spent caring for the patient today was 30 minutes. This includes time spent before the visit reviewing the chart, time spent during the visit, and time spent after the visit and documentation. Patient was informed and verbally consented to the use of an ambient scribe for clinic note documentation during this visit. Orders: Referrals Optometry Referral I10 - Essential (primary) hypertension, Z00.00 - Encounter for general adult medical examination without abnormal findings Medications: New amlodipine 10 mg PO DAILY 90 tabs 0RF blood pressure monitor As directed; to check BP 1 ea 0RF I10 - Essential (primary) hypertension Discontinued amlodipine Discontinued Reason: Patient no longer taking 5 mg PO DAILY 90 tabs 2RF
[2025-01-20 13:38] VITALS: BP 170/90; PULSE 88; TEMP 36.4; O2SAT 96; BMI 26.2
--- OUTSIDE RECORDS SUMMARY | 2025-01-20 14:06 | XMS_ITS | Clinical Summary ---
Author Organization [facility] Address [address] [place] [address] Phone Care Team Providers Care Special Needs Bus Driver Name Role Phone Physician, No Pcp Primary Care Provider Unavaila ble Allergies No known active allergies Medical History Medical History Date Comments HTN [...] 67 07/18/2024 8:03 PM EST Temperature 36.4 C (97.5 F) 07/18/2024 8:03 PM EST Respiratory Rate 16 07/18/2024 8:03 PM EST [...] Panel) 08/11/2022 Colorectal Cancer Screening: Colonoscopy 08/11/2022 Hepatitis C Screening 08/11/2022 Medicare Annual Wellness Visit 08/11/2022 Social Influencers of Health Screening 08/11/2022 Falls Risk Assessment 11/03/2023 COVID-19 Vaccine (2 - 2023-2 5 season) 2024 07/04/2022 Depression Screening 06/24/2024 Influenza Vaccine (#1) 2025 DTaP,Tdap,and Td Vaccines (2 - Td [...] on patient's age to complete this topic Insurance MEDICAID - [place] Member Subscriber Plan / Payer (Ef fective 2024-Present) Name:Jordan Blanco Relation to Subscriber:Self Name:Jordan Blanco Payer ID:[id number] Group ID:Not on file Type:Not on file Address: [facility] [facility] ATTN:CLAIMS [address] [place] [id number] [employer] Care Teams Special Needs Bus Driver Relationship Specialty Start Date End Date Physician, No Pcp PCP - General 07/18/24
--- OUTSIDE RECORDS SUMMARY | 2025-01-20 14:06 | XMS_ITS | Clinical Summary ---
Author Organization [facility] Address [address] [place] [address] Care Team Providers Care Crop Setting Out Machine Operator Name Role Phone Unavailable Primary Care Provider [...] 2023-2 5 season) 2024 Influenza Vaccine (#1) 2025 RSV Patients and Pa tients Aged 60 [...]
--- OUTSIDE RECORDS SUMMARY | 2025-01-20 14:06 | XMS_ITS ---
Author Name [facility] Organization Unknown Care Team Organization Name Specialty Phone Email Start Date End Da blaze [facility] MEÑO BANKS Primary Care 05/01/2022 02/10/20 24
== END 2025-01-20 14:51 | disposition home or self-care (01) ==
LOC: HO.HMCH 13:31
DX: Z00.00 Encounter for general adult medical examination without abnormal findings (principal); R91.1 Solitary pulmonary nodule; K21.9 Gastro-esophageal reflux disease without esophagitis; I10 Essential (primary) hypertension; F41.9 Anxiety disorder, unspecified; K82.4 Cholesterolosis of gallbladder; Z13.220 Encounter for screening for lipoid disorders; R05.9 Cough, unspecified

== ENCOUNTER → 2025-01-20 13:31 | Outpatient (BNVA) | payer MEDICARE, MEDICAID, SELFPAY | DX: Z00.00 Encounter for general adult medical examination without abnormal findings (principal); R91.1 Solitary pulmonary nodule; K21.9 Gastro-esophageal reflux disease without esophagitis; I10 Essential (primary) hypertension; F41.9 Anxiety disorder, unspecified; K82.4 Cholesterolosis of gallbladder; R05.9 Cough, unspecified; Z79.899 Other long term (current) drug therapy; Z13.31 Encounter for screening for depression; Z13.39 Encounter for screening examination for other mental health and behavioral disorders | CPT/HCPCS: 96127; 99397 ==

== ENCOUNTER 2025-02-05 15:41 | Outpatient (REF) | payer MEDICARE, MEDICAID, SELFPAY ==
--- NOTE | ~2025-02-05 | CT_ITS ---
CLINICAL HISTORY: R91.1 - Solitary pulmonary nodule CT chest without contrast Comparison:07/23/2024 and 11/03/2024 Findings: The heart size is normal. The visualized thyroid and mediastinum are unremarkable. Stable 7 mm left juxtapleural nodule on series 4, image 71 and small calcified left upper lobe lung granuloma. Severe hepatic steatosis. The bones are intact. IMPRESSION: 1. Stable 7 mm left juxtapleural nodule. Continued follow-up is dependent on underlying risk (per Fleischner society criteria, CT follow-up in 18-24 month in high risk patients recommended). 2. Severe hepatic steatosis. This document has been electronically signed by: Ceci Mathews MD on 02/08/2025 10:46:07
--- OUTSIDE RECORDS SUMMARY | 2025-02-05 15:43 | XMS_ITS | Clinical Summary ---
Author Organization [facility] Address [address] [place] [address] Phone Care Team Providers Care Hospital Food Service Worker Name Role Phone Physician, No Pcp Primary [...] ID:Not on file Type:Not on file Address: [facility] ATTN:CLAIMS [address] [place] [phone] [employer] Care Teams Hospital Food Service Worker Relationship Specialty Start Date End Date Physician, No Pcp PCP - General 07/18/24
--- OUTSIDE RECORDS SUMMARY | 2025-02-05 15:43 | XMS_ITS | Clinical Summary ---
Author Organization [facility] Address [address] [place] [address] Care Team Providers Care Infant And Toddler Teacher Name Role Phone Unavailable Primary Care Provider [...]
== END 2025-02-05 15:42 | disposition home or self-care (01) ==
LOC: HO.CT 15:41
DX: R91.1 Solitary pulmonary nodule (principal)
CPT/HCPCS: 71250

== ENCOUNTER → 2025-02-05 15:43 | Outpatient (BNV) | payer MEDICARE, MEDICAID, SELFPAY | PROVIDERS: Visit Provider Radiology Diagnostic Radiology | DX: R91.1 Solitary pulmonary nodule (principal); K76.0 Fatty (change of) liver, not elsewhere classified | CPT/HCPCS: 71250 ==

== ENCOUNTER 2025-02-09 15:07 | Outpatient (AMB) | payer MEDICARE, MEDICAID, SELFPAY ==
[2025-02-09 15:55] VITALS: BP 140/88; PULSE 66; O2SAT 98; BMI 26.6
--- NOTE | 2025-02-09 15:55 | A.OFFVIS_ITS ---
Vital Signs 02/09/25 15:55 Height 5 ft 7.72 in Weight 173 lb 4 oz BMI 26.6 BP 140/88 H Blood Pressure Location Rt brachial Position Sitting Pulse 66 Pulse Source Pulse Oximeter Pulse Oximetry (%) 98 Oxygen Delivery Method Room Air Intake Visit Reasons: Pulmonary Nodule Allergies No Known Allergies Allergy (Verified 02/09/25 15:58) HPI HPI Pulmonary Nodule: Details: Jordan is a pleasant 64-year-old male, never smoker, with underlying anxiety, hypertension, and GERD. He was referred by PCP presenting with a pulmonary nodule. The nodule was initially identified in June and measured 8 mm, incidentally when he had emergent evaluation for chest pain. Subsequent scans in October 2024 and January 2025 revealed persistent stability over the last six months. 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 He currently denies any respiratory symptoms but does report symptoms consistent with allergic rhinitis, including nasal congestion and postnasal drip, which have been managed with cetirizine however uses intermittently. Prior PFT unremarkable and denies prior h/o asthma. Denies any pertinent family history. He experiences occasional gastroesophageal reflux, for which he takes omep razole, although there is consideration for adjusting the medication if symptoms persist and has upcoming GI evaluation. [facility] Medical History Gallbladder polyp No pertinent past medical history Surgical History No pertinent past surgical history Family History Other Substance use disorder Social History Housing: Apartment Unable to assess alcohol history related to: Unknown Alcohol intake: current Alcohol intake frequency: a few times a week Patient Tobacco Use Status: Never used Tobacco e-Cigarette/Vaping Use: Never Used Second Hand Smoke Exposure: No service: No Current occupational status: retired Cognitive needs: No Hearing needs: No Vision needs: Yes (Reading Glasses) Review of Systems Const Denies chills, Denies excessive sweating, Denies fever(s), Denies headache(s) and Denies night sweats Eyes Denies dry eyes, Denies irritation and Denies itchy eyes ENT Reports Normal hearing present, Denies headache(s), Denies nasal discharge and Denies sore throat Card Denies chest pain, Denies chest pain at rest, Denies chest pain with activity, Denies claudication, Denies leg edema, Denies dyspnea, Denies dyspnea on exertion, Denies orthopnea and Denies paroxysmal nocturnal dyspnea Resp Denies chest congestion, Denies cough, Denies excessive phlegm production, Denies pain on inspiration, Denies pain with cough, Denies dyspnea, Denies dyspnea on exertion, Denies stridor and Denies wheezing Musc Denies myalgias Neuro Reports Normal hearing present and Denies headache(s) Endo Denies excessive sweating Pieter/Lymph Denies lymphadenopathy Aller/Immun Denies itchy eyes, Denies seasonal rhinorrhea and Denies wheezing Physical Exam Vital Signs: Last Vital Signs Pulse 66 02/09/25 15:55 BP 140/88 H 02/09/25 15:55 Pulse Ox 98 02/09/25 15:55 Oxygen Delivery Method Room Air 02/09/25 15:55 BMI result Body Mass Index 26.6 Const General: cooperative, healthy appearing, comfortable, no acute distress, well developed and alert Orientation/consciousness: patient oriented x3 Limitations: no limitations HEENT Head: Yes normal to inspection, Yes normocephalic and Yes atraumatic Ears: hearing grossly normal bilaterally and external ears normal Eyes General: appearance normal, both eyes and all related structures Eyelids: Yes eyelids normal Sclerae: sclerae normal EOM: EOMs intact bilaterally Neck Neck: Yes normal visual inspection and Yes no lymphadenopathy Lymphatic: no lymphadenopathy noted Chest Chest palpation & inspection: normal inspection of the chest Resp Effort & Inspection: normal respiratory effort, able to speak in complete sentences, no audible wheezes, no cough, no stridor, not tachypneic, no tripod positioning and no use of accessory muscles Auscultation: clear to auscultation bilaterally Cardio Jugular venous distension: no JVD Rate: regular rate Rhythm: regular rhythm Skin Other: warm, dry General skin exam: no rashes or lesions noted Neuro General: patient oriented x3 Cranial nerves: Yes Normal hearing present Cognition (Neuro): normal cognition Gait exam (Neuro): Normal gait present Extrem General: Yes normal to inspection, Yes capillary refill normal, Yes no clubbing, cyanosis or edema and Yes no pedal edema Psych Appearance: grossly normal and well kempt Speech and movement: Normal speech and movement present and Clear speech present Affect: normal affect Attitude: cooperative Thought process: Normal thought process present Thought content: Normal thought content present Insight: Good insight present (Psych) Judgement: Good judgement present (Psych) Results Reviewed Results Reviewed: [address] [address] [address] Scan Report Signed Patient: Jordan Blanco MR#: [id number] : 1960 Acct:[id number] Age/Sex: 64 / M ADM Date: 02/05/25 Loc: HO.CT Attending Dr: Romana Cruz PA-C Ordering Physician: Romana Cruz PA-C Date of Service: 02/05/25 Procedure(s): CT chest wo IV con Accession Number(s): [id number] cc: Romana Cruz PA-C~ Report Number: [id number]: Total DLP = 163.00 mGy-cm CLINICAL HISTORY: R91.1 - Solitary pulmonary nodule CT chest without contrast Comparison:07/23/2024 and 11/03/2024 Findings: The heart size is normal. The visualized thyroid and mediastinum are unremarkable. Stable 7 mm left juxtapleural nodule on series 4, image 71 and small calcified left upper lobe lung granuloma. Severe hepatic steatosis. The bones are intact. IMPRESSION: 1. Stable 7 mm left juxtapleural nodule. Continued follow-up is dependent on underlying risk (per Fleischner society criteria, CT follow-up in 18-24 month in high risk patients recommended). 2. Severe hepatic steatosis. Assessment & Plan Assessment & Plan (1) Lung nodule: Code(s): R91.1 - Solitary pulmonary nodule Category: Medical (2) Allergic rhinitis: Code(s): J30.9 - Allergic rhinitis, unspecified Category: Medical Plan The plan for the pulmonary nodule includes a follow-up CT scan in 12 months to monitor for any changes in size or characteristics, given the stability observed over the past six months. For allergic rhinitis, the patient is advised to continue cetirizine daily and monitor symptoms, especially during the ragweed season, and to consider a nasal spray if symptoms persist. Prior PFT unremarkable. He is aware to call if symptoms change or continue despite daily antihistamine, will need sooner follow up. Regarding gastroesophageal reflux disease, the patient is instructed to discuss potential adjustments to his omeprazole regimen with his supervisor telephone answering service if symptoms do not improve. All questions were answered and patient is in agreement of plan. Will follow up to review results or sooner if needed. Orders: Orders CT chest wo IV con 11 Months R91.1 - Solitary pulmonary nodule Coding Level of Care Code New Pt Level 3 (12382) Diagnoses Lung nodule R91.1 Allergic rhinitis J30.9
--- OUTSIDE RECORDS SUMMARY | 2025-02-09 16:26 | XMS_ITS | Clinical Summary ---
Author Organization [employer] Address [address] [facility] [place] [address] Care Team Providers Care Micropaleontologist Name Role Phone Unavailable Primary Care Provider [...]
--- OUTSIDE RECORDS SUMMARY | 2025-02-09 16:26 | XMS_ITS | Clinical Summary ---
Author Organization [facility] Address [address] [place] [address] Phone Care Team Providers Care Kitchen Clerk Name Role Phone Physician, No Pcp Primary [...] ID:Not on file Type:Not on file Address: [facility] ATTN:CLAIMS [address] [place] [phone] [employer] Care Teams Kitchen Clerk Relationship Specialty Start Date End Date Physician, No Pcp PCP - General 07/18/24
== END 2025-02-09 16:17 | disposition home or self-care (01) ==
LOC: HO.HPSW 15:08
PROVIDERS: Visit Provider Nurse Practitioner Family
DX: R91.1 Solitary pulmonary nodule (principal); J30.9 Allergic rhinitis, unspecified
CPT/HCPCS: 99203

== ENCOUNTER → 2025-02-09 15:07 | Outpatient (BNVA) | payer MEDICARE, MEDICAID, SELFPAY | PROVIDERS: Visit Provider Nurse Practitioner Family | DX: R91.1 Solitary pulmonary nodule (principal); J30.9 Allergic rhinitis, unspecified | CPT/HCPCS: 99202 ==

== ENCOUNTER 2025-03-08 13:01 | Outpatient (REF) | payer MEDICARE, MEDICAID, SELFPAY ==
[2025-03-08 14:39] LABS: Alanine Aminotransferase 45 U/L (0-40); Albumin Level 4.8 g/dL (3.5-5.0); Alkaline Phosphatase 82 U/L (39-117); Anion Gap 12 (12-20); Aspartate Amino Transferase 41 U/L (5-37); Blood Urea Nitrogen 16 mg/dL (9-16); Calcium 9.7 mg/dL (8.4-10.2); Carbon Dioxide 28 mmol/L (22-29); Chloride 104 mmol/L (96-108); Cholesterol 251 mg/dL (<200); Estimated Glomerular Filt Rate > 60; HDL Cholesterol 41 mg/dL (>40); Potassium 3.8 mmol/L (3.3-5.1); Sodium 140 mmol/L (135-145); Total Protein 7.9 g/dL (6.5-8.0); Triglycerides 387 mg/dL (<150)
[2025-03-08 14:59] LABS: Free T4 (Free Thyroxine) 1.00 ng/dL (0.71-1.85)
[2025-03-08 15:10] LABS: Folate 11.9 ng/mL (> or = 4.0); Vitamin B12 921 pg/mL (200-900)
--- OUTSIDE RECORDS SUMMARY | 2025-03-08 18:04 | XMS_ITS | Clinical Summary ---
Author Organization [facility] Address [address] [place] [address] Phone Care Team Providers Care Field Counsel Name Role Phone Physician, No Pcp Primary [...] Health Screening 08/11/2022 Falls Risk Assessment 11/03/2023 Depression Screening 06/24/2024 COVID-19 Vaccine (2 - 2024-2 6 season) 2025 07/04/2022 Influenza Vaccine (#1) 2025 DTaP,Tdap,and Td Vaccines [...] ID:Not on file Type:Not on file Address: [facility] ATTN:CLAIMS [address] [place] [phone] [employer] Care Teams Field Counsel Relationship Specialty Start Date End Date Physician, No Pcp PCP - General 07/18/24
--- OUTSIDE RECORDS SUMMARY | 2025-03-08 18:04 | XMS_ITS | Clinical Summary ---
Author Organization [employer] Address [address] [facility] [address] [place] [address] Care Team Providers Care Roll Machine Operator Name Role Phone Unavailable Primary [...] COVID-19 Vaccine ( - 2023-2 5 season) 2025 Influenza Vaccine (#1) 2025 RSV Patients and [...]
--- OUTSIDE RECORDS SUMMARY | 2025-03-08 18:05 | XMS_ITS | Encounter Summary ---
Author Organization [employer] Address [address] [place] [address] Care Team Providers Care Supervisor Pipeline Name Role Phone Unavailable Primary Care Provider Unavailabl e Reason for Visit * Reason Onset Date Comments New patient 07/04/2023 Encounter Details Date Type Department Care Team (Late st Contact Info) Description 07/04/2023 Telephone [facility] [address] [place], [place] [phone] Eduar Rodriguez MD [address] [place], [place] [phone] New patient Social History Tobacco Use Types [...] patient with the facility to please call [facility] and switch insurance to C3, once done to give a call back to startprocess of becoming a Patient. Pt Understood. documented in this encounter Plan of Treatment Not on file documented as of this encounter Visit Diagnoses Not on filedocumented in this encounter
[2025-03-11 23:39] LABS: PSA, Ultra Sensitive 0.56 ng/mL
== END 2025-03-08 13:02 | disposition home or self-care (01) ==
LOC: HO.LAB 13:01
DX: Z00.00 Encounter for general adult medical examination without abnormal findings (principal); Z13.220 Encounter for screening for lipoid disorders; Z13.6 Encounter for screening for cardiovascular disorders; Z13.29 Encounter for screening for other suspected endocrine disorder
CPT/HCPCS: 36415; 80053; 80061; 82306; 82607; 82746; 84153; 84439; 84443

== ENCOUNTER 2025-03-26 13:55 | Outpatient (AMB) | payer MEDICARE, MEDICAID, SELFPAY ==
--- NOTE | 2025-03-26 13:58 | A.OFFPC_ITS ---
Vital Signs 03/26/25 13:59 03/26/25 14:36 Height 5 ft 7.72 in Weight 173 lb 2 oz BMI 26.5 BP 146/96 H 138/82 Blood Pressure Location Lt brachial Lt brachial Position Sitting Sitting Pulse 73 Pulse Source Pulse Oximeter Temp 97.3 F Temp Source Temporal Artery Scan Pulse Oximetry (%) 98 Oxygen Delivery Method Room Air Intake Visit Reasons: 4 mnth f/u Allergies No Known Allergies Allergy (Verified 03/26/25 14:17) Medication List - Last Reconciled 03/26/25 by Romana Cruz PA-C amlodipine 10 mg PO DAILY blood pressure monitor As directed; to check BP fexofenadine (Piper Allergy) 180 mg PO DAILY omeprazole 20 mg PO BID Tobacco use date assessed: 03/26/25 Fall risk assessment: No Falls in past year Last assessed Fall Risk: 03/26/25 Dental Screening Dental Screen Date: 03/26/25 Did you have a dental visit in the last 12 months?: No Did you have a dental problem in the last 6 months where you did not have access to dental care?: No Was dental information given to patient?: No HPI 4 mnth f/u HPI Details 64-year-old male with past medical histo ry of anxiety, hypertension, GERD last seen 12/2024 coming in for follow up. In review of the notes, patient was seen by pulfaisal 01/[address] scan in 12 months. Presenting with hypertension and elevated triglycerides. The patient is on the maximum dose of amlodipine but continues to have elevated blood pressure, possibly due to high salt intake. The patient's triglyceride level is 387 mg/dL, likely due to a high intake of sweets. [facility] Medical History Gallbladder polyp No pertinent past medical history Surgical History No pertinent past surgical history Family History Other Substance use disorder Social History Housing: Apartment Alcohol intake: current Alcohol intake frequency: a few times a week Patient Tobacco Use Status: Never used Tobacco e-Cigarette/Vaping Use: Never Used Second Hand Smoke Exposure: No service: No Current occupational status: retired Cognitive needs: No Hearing needs: No Vision needs: Yes (Reading Glasses) Questionnaire PHQ-9 Over the last 2 weeks, how often have you been bothered by any of the following problems? 1. Little interest or pleasure in doing things: not at all 2. Feeling down, depressed, or hopeless: not at all 3. Trouble falling or staying asleep, or sleeping too much: several days 4. Feeling tired or having little energy: more than half the days 5. Poor appetite or overeating: not at all 6. Feeling bad about yourself - or that you are a failure or have let yourself or your family down: not at all 7. Trouble concentrating on things, such as reading the newspaper or watching television: not at all 8. Moving or speaking so slowly that other people could have noticed. Or the opposite - being so fidgety or restless that you have been moving around a lot more than usual: not at all 9. Thoughts that you would be better off or of hurting yourself in some way: not at all Total score: 3 Depression Screening Interpretation: Negative Depression Screening Done: Yes Source: Developed by Drs. Houston Choudhury, Kristine Grimaldo, Jordi Flores and colleagues, with an educational syeda from [employer]. Thrive Questionnaire Date Thrive assessed: 09/29/24 I am a: Patient What is your living situation today?: I choose not to answer this question Within the past 12 months, did the food you bought not last and you didn't have the money to get more?: Sometimes True Within the past 12 months, did you worry whether your food would run out before you got money to buy more?: Sometimes True Do you have trouble paying for medicines?: No Do you have trouble getting transportation to medical appointments?: I choose not to answer this question Do you have trouble paying your heating and electricity bill?: No Do you have trouble taking care of your child, family member or friend?: I choose not to answer this question Do you have trouble with day-to-day activities such as bathing, preparing meals, shopping, managing finances, etc.?: No Are you currently unemployed and looking for a job?: I choose not to answer this question Are you interested in more education?: No Currently or been in a relationship where the following occur: I choose not to answer THRIVE Score: 2 AUDIT C Alcohol Use Questionnaire (AUDIT-C) 1. How often do you have a drink containing alcohol?: 2-4 times a month 2. How many drinks containing alcohol do you have on a typical day when you are drinking?: 3 or 4 3. How often do you have six or more drinks on one occasion?: Never Total Score: 3 INESSA-7 AMB Questionnaire INESSA-7 Date INESSA - 7 assessed: 01/20/25 Feeling nervous, anxious, or on edge: 2 = More than half the days Not being able to stop or control worryin = Several days Worrying too much about different things: 3 = Nearly every day Trouble relaxin = Not at all Being so restless that it is hard to sit still: 1 = Several days Becoming easily annoyed or irritable: 0 = Not at all Feeling afraid as if something awful might happen: 2 = More than half the days Total INESSA-7 score (0-4 normal; 5-9 mild; 10-14 moderate; 15-21 severe): 9 Source: Developed by Drs. Houston Choudhury, Kristine Grimaldo, Jordi Flores and colleagues, with an educational syeda from [employer]. Review of Systems Const Denies body aches, Denies chills, Denies fever(s), Denies headache(s) and Denies poor appetite Eyes Reports no additional complaints ENT Denies dysphagia, Denies dizziness, Denies headache(s) and Denies odynophagia Card Denies chest pain, Denies syncope, Denies edema, Denies irregular heart rhythm, Denies lightheadedness and Denies dyspnea Resp Denies cough and Denies dyspnea GI Denies abdominal pain, Denies constipation, Denies dysphagia, Denies diarrhea, Denies nausea, Denies odynophagia and Denies vomiting Reports no additional complaints Musc Reports no additional complaints and Denies abnormal gait Skin/Breast Reports system reviewed and no additional complaints, except as documented Neuro Denies abnormal gait, Denies dizziness, Denies syncope and Denies headache(s) Psych Reports no additional complaints Physical exam (Primary Care) Vital Signs: Last Vital Signs Temp 97.3 F 03/26/25 13:59 Pulse 73 03/26/25 13:59 BP 146/96 H 03/26/25 13:59 Pulse Ox 98 03/26/25 13:59 Oxygen Delivery Method Room Air 03/26/25 13:59 BMI result Body Mass Index 26.5 Tobacco/Smoking Status: Tobacco use Status Tobacco use date assessed 03/26/25 03/26/25 14:04 Patient Tobacco Use Status Never used Tobacco 03/26/25 14:04 e-Cigarette/Vaping Use Never Used 03/26/25 14:04 PHQ-9: PHQ-9 Score PHQ-9: Total score 3 03/26/25 14:14 Depression Screening Interpretation: Negative Thrive Assessment: Date of Thrive Assessment Date Thrive assessed 09/29/24 03/26/25 14:04 Currently or been in a relationship where the following occur: I choose not to answer Const General: cooperative, healthy appearing, comfortable and no acute distress Orientation/consciousness: patient oriented x3 HENMT Head: Yes normocephalic Ears: hearing grossly normal bilaterally General nose exam: Normal external nose present Eyes General: appearance normal, both eyes and all related structures Conjunctivae: conjunctivae normal Neck Neck: Yes full ROM and Yes no lymphadenopathy Resp Effort & Inspection: normal respiratory effort Auscultation: clear to auscultation bilaterally, no crackles, no rales, no rhonchi and no wheezes Cardio Rate: regular rate Rhythm: regular rhythm Skin General skin exam: no rashes or lesions noted Neuro General: patient oriented x3 Gait exam (Neuro): Normal gait present Extrem General: Yes normal to inspection, Yes full ROM and No edema Psych Affect: normal affect Attitude: cooperative Insight: Good insight present (Psych) Judgement: Good judgement present (Psych) Coding Level of Care Code Est Pt Level 3 (39108) Diagnoses Lung nodule R91.1 GERD (gastroesophageal reflux disease) K21.9 Hypertension I10 Hypercholesterolemia E78.00 Elevated LFTs R79.89 Assessment & Plan Assessment & Plan (1) Lung nodule: Code(s): R91.1 - Solitary pulmonary nodule Category: Medical Plan: He was seen by pulmonology and advised to follow up in one year for repeat CT. (2) GERD (gastroesophageal reflux disease): Code(s): K21.9 - Gastro-esophageal reflux disease without esophagitis Category: Medical Plan: Avoid trigger foods such as citrus, tomato products, soda, caffeine, spicy foods and other foods that may be irritating to your stomach. Avoid laying flat 3-4 hours after eating and elevate the head of the bed 30 degrees to prevent acid from moving into the esophagus. Continue on omeprazole (3) Hypertension: Code(s): I10 - Essential (primary) hypertension Category: Medical Plan: Continue on current blood pressure medication. Avoid salt intake and encourage healthy diet and regular exercise. Blood pressure elevated in the office but normalized once retaken at 138/82. He does endorse a high salt diet and advised to avoid adding excess salt to food. Given resources about blood pressure management and plan to continue on current medication regimen and bring log of blood pressures to next visit. (4) Hypercholesterolemia: Code(s): E78.00 - Pure hypercholesterolemia, unspecified Category: Medical Plan: Avoid foods that are high in cholesterol such as red meat, fried foods, eggs and baked goods. Triglyceride goal of less than 150 and LDL goal of less than 130. Plan to work on dietary habits and repeat in 3 months. (5) Elevated LFTs: Code(s): R79.89 - Other specified abnormal findings of blood chemistry Category: Medical Plan: Plan to repeat labs in 3 months. Plan This note was constructed using voice recognition software. While every effort has been made to ensure accuracy and machine operator slitter technician, still areas may have been included sometimes these areas may affect the content or meeting of the given symptoms. Total time spent caring for the patient today was 30 minutes. This includes time spent before the visit reviewing the chart, time spent during the visit, and time spent after the visit and documentation. Patient was informed and verbally consented to the use of an ambient scribe for clinic note documentation during this visit. Orders: Orders Hepatitis B,C Profile Today R79.89 - Other specified abnormal findings of blood chemistry Liver Panel Today R79.89 - Other specified abnormal findings of blood chemistry Lipid Panel Today E78.00 - Pure hypercholesterolemia, unspecified
[2025-03-26 13:59] VITALS: BP 146/96; PULSE 73; TEMP 36.3; O2SAT 98; BMI 26.5
--- OUTSIDE RECORDS SUMMARY | 2025-03-26 14:03 | XMS_ITS | Encounter Summary ---
Author Organization [employer] Address [address] [place] [address] Care Team Providers Care Accountant Certified Public Name Role Phone Unavailable Primary Care Provider Unavailabl e Reason for Visit * Reason Onset Date Comments New patient 07/04/2023 Encounter Details Date Type Department Care Team (Late st Contact Info) Description 07/04/2023 Telephone [facility] [address] [place], [place] [phone] Eduar Rodriguez MD [address] [place], [place] [phone] New patient Social History Tobacco Use Types [...] patient with the facility to please call [facility] and switch insurance to C3, once done to give a call back to startprocess of becoming a Patient. Pt Understood. documented in this encounter Plan of Treatment Not on file documented as of this encounter Visit Diagnoses Not on filedocumented in this encounter
--- OUTSIDE RECORDS SUMMARY | 2025-03-26 14:03 | XMS_ITS | Clinical Summary ---
Author Organization [employer] Address [address] [facility] [address] [place] [address] Care Team Providers Care Research Physicist Name Role Phone Unavailable Primary Care Provider [...]
--- OUTSIDE RECORDS SUMMARY | 2025-03-26 14:03 | XMS_ITS | Clinical Summary ---
Author Organization [facility] Address [address] [place] [address] Phone Care Team Providers Care Airplane Cleaner Name Role Phone Physician, No Pcp Primary [...] Health Maintenance Due Date Last Done Comments Colorectal Cancer Screening: Colonoscopy 1960 Pneumococcal Vaccine: 50+ Years (1 of 1 - PCV) 2008 Cholesterol Screening (Lipid Panel) 08/11/2022 Hepatitis C Screening 08/11/2022 Medicare Annual [...] ID:Not on file Type:Not on file Address: [facility] ATTN:CLAIMS [address] [place] [phone] [employer] Care Teams Airplane Cleaner Relationship Specialty Start Date End Date Physician, No Pcp PCP - General 07/18/24
[2025-03-26 14:36] VITALS: BP 138/82
== END 2025-03-26 14:42 | disposition home or self-care (01) ==
LOC: HO.HMCH 13:56
DX: R91.1 Solitary pulmonary nodule (principal); K21.9 Gastro-esophageal reflux disease without esophagitis; I10 Essential (primary) hypertension; E78.00 Pure hypercholesterolemia, unspecified; R79.89 Other specified abnormal findings of blood chemistry

== ENCOUNTER → 2025-03-26 13:55 | Outpatient (BNVA) | payer MEDICARE, MEDICAID, SELFPAY | DX: I10 Essential (primary) hypertension (principal); F41.9 Anxiety disorder, unspecified; K21.9 Gastro-esophageal reflux disease without esophagitis; R91.1 Solitary pulmonary nodule; E78.00 Pure hypercholesterolemia, unspecified; R79.89 Other specified abnormal findings of blood chemistry | CPT/HCPCS: 96127; 99212 ==

== ENCOUNTER 2025-04-07 14:28 | Outpatient (AMB) | payer MEDICARE, MEDICAID, SELFPAY ==
[2025-04-07 14:35] VITALS: BP 160/84; PULSE 65; O2SAT 99; BMI 26.3
--- NOTE | 2025-04-07 14:35 | MHC.OFFVIS ---
Vital Signs 04/07/25 14:35 Height 5 ft 7.2 in Weight 169 lb BMI 26.3 BP 160/84 H Blood Pressure Location Lt brachial Position Sitting Pulse 65 Pulse Oximetry (%) 99 Oxygen Delivery Method Room Air Intake Visit Reasons: [facility] screening r/s 01/12/25 Intake Note: Patient new consult for 2nd pre Colonoscopy screening, 1st Colonoscopy was at Patient cc: gastritis come and go, constipation on and off and clearing his throat a lot. Patient needed refill for Omeprazole 20 mg BID. Photographic Equipment Inspector Required: No Accompanied by: Self / Same As Patient Allergies No Known Allergies Allergy (Verified 04/07/25 14:34) Medication List - Last Reconciled 04/07/25 by Henny Rojas CNP amlodipine 10 mg PO DAILY blood pressure monitor As directed; to check BP fexofenadine ([facility]) 180 mg PO DAILY omeprazole 20 mg PO DAILY HPI HPI [facility] screening r/s 01/12/25: Details: Patient is a 64-year-old male with PMH of . Referred for pre colonoscopy screening. Jordan reports intermittent constipation with bowel movements occurring every other day, often hard in consistency and occasionally requiring straining, but without associated abdominal pain, nausea, vomiting, or recent fever. He acknowledges low dietary fiber intake and insufficient hydration, which he attributes to his bowel habits. Over the past few days, he has noted a burning sensation in the right upper abdomen and occasional acid regurgitation, as well as a scratchy sensation in his throat. He describes these as intermittent and notes running out of his omeprazole recently, previously using it on an as-needed basis, with the last dose taken three days ago. He also endorses occasional bloating. He reports intermittent dysphagia to both solids and liquids, characterized by episodes where food and liquid won't go down, necessitating cessation of eating and expectoration of ingested water; no need for emergent intervention and no history of food impaction requiring removal. Appetite is overall good. He denies current or recent GI bleeding; he has a remote history of hematochezia and diagnostic colonoscopy in his 40s showing hemorrhoids. No current rectal bleeding. Relevant comorbidities include hypertension; he is managed with medication but notes recent elevated BP and is under PCP supervision. He has a history of fatty liver and recently noted mildly elevated liver enzymes, with an incomplete fasting lab status suspected as the cause. He also has a pulmonary nodule under surveillance by pulmonology, with a repeat scan recommended in 12 months. Also with known gallbladder polyp, previously followed by general surgery, with last imaging in December 2023; he plans to follow up with Dr. Bass in general surgery for ongoing surveillance and will contact their office directly to schedule. No personal or family history of GI malignancy. Patient denies: fever/chills, n/v, unintentional wt loss, ab pain or melena/hematochezia. Social hx: -ETOH use 4 beers, 1-2 shots weekly -deniesrecreational drug use -non-smoker - family hx as below -denies personal hx of CA -denies significant cardiopulmonary history -tolerated anesthesia in the past without difficulty. PFSH Medical History (Updated 04/07/25 @ 15:23 by Henny Rojas CNP) Constipation Colon cancer screening Dysphagia Gallbladder polyp No pertinent past medical history Surgical History No pertinent past surgical history Family History (Updated 04/07/25 @ 15:02 by Henny Rojas CNP) Mother Diabetes Other Substance use disorder Social History Housing: Apartment Unable to assess alcohol history related to: Unknown Alcohol intake: current Alcohol intake frequency: a few times a week Patient Tobacco Use Status: Never used Tobacco e-Cigarette/Vaping Use: Never Used Second Hand Smoke Exposure: No service: No Current occupational status: retired Cognitive needs: No Hearing needs: No Vision needs: Yes (Reading Glasses) Review of Systems Const Reports as per HPI ENT Reports as per HPI Card Reports as per HPI Resp Reports as per HPI GI Reports as per HPI Reports as per HPI Physical Exam Vital Signs: Oxygen Delivery Method Room Air 04/07/25 14:35 BMI result Body Mass Index 26.9 Const General: healthy appearing, no acute distress and well developed Nutritional Appearance: average body habitus Orientation/consciousness: patient oriented x3 HEENT Head: Yes normal to inspection, Yes normocephalic and Yes atraumatic Face and sinus: Yes normal facial exam Eyes General: appearance normal, both eyes and all related structures Neck Neck: Yes normal visual inspection Resp Effort & Inspection: normal respiratory effort, able to speak in complete sentences, no tracheal deviation and symmetric chest movement Auscultation: clear to auscultation bilaterally Cardio Jugular venous distension: no JVD Rate: regular rate Rhythm: regular rhythm Heart sounds: S1 normal heart sound present, S2 normal heart sound present, no gallops and no murmurs GI Inspection: Yes normal to inspection and No distended Palpation (GI): Soft to palpation, not firm, nontender and No hepatosplenomegaly present Auscultation: normal bowel sounds Neuro General: patient oriented x3 Gait exam (Neuro): Normal gait present Psych Appearance: grossly normal Mental Status: mental status grossly normal Speech and movement: Normal speech and movement present Affect: normal affect Attitude: cooperative Thought process: Normal thought process present Thought content: Normal thought content present Insight: Good insight present (Psych) Judgement: Good judgement present (Psych) Assessment & Plan Assessment & Plan (1) Colon cancer screening: Code(s): Z12.11 - Encounter for screening for malignant neoplasm of colon Category: Medical Plan: Age-appropriate CRC screening; no personal or family hx of CRC; prior colonoscopy remote, now due for repeat. Medications: -prescriptions for laxative tablets and PEG sent to pharmacy; instructions on clear liquid diet given. Patient educated on scheduling process, procedure preparation, including avoiding certain foods and ensuring clear liquid intake Advised on necessity for ride post-procedure due to sedation. (2) GERD (gastroesophageal reflux disease): Code(s): K21.9 - Gastro-esophageal reflux disease without esophagitis Category: Medical Qualifiers: Esophagitis presence: esophagitis presence not specified Qualified Code(s): K21.9 - Gastro-esophageal reflux disease without esophagitis Plan: Classic symptoms with intermittent burning, acid regurgitation, symptom relief on omeprazole. Additional Testing: EGD recommended at time of colonoscopy for mucosal evaluation. Medication Management: Resume omeprazole 20 mg daily in AM, 30 min before food. Emphasize daily use over as-needed. Lifestyle Recommendations: Avoid late meals, citrus, caffeine, alcohol; elevate head of bed; maintain healthy weight. Follow-Up: Reassess post-EGD or if worsening. (3) Constipation: Code(s): K59.00 - Constipation, unspecified Category: Medical Qualifiers: Constipation type: unspecified constipation type Qualified Code(s): K59.00 - Constipation, unspecified Plan: Infrequent, hard BMs with dietary/lifestyle contributors; no red flags. Educated that effective constipation management is critical to ensure adequate bowel prep and diagnostic yield for colonoscopy. Additional Testing: None unless symptoms worsen or alarm features develop. Medication Management: Pt declined; dietary fiber and hydration emphasized. Lifestyle Recommendations: Increase fiber (fruits, vegetables, whole grains) and fluid intake; regular exercise. Follow-Up: Reassess post-colonoscopy or sooner if symptoms worsen. (4) Dysphagia: Code(s): R13.10 - Dysphagia, unspecified Category: Medical Qualifiers: Dysphagia type: unspecified Qualified Code(s): R13.10 - Dysphagia, unspecified Plan: Intermittent swallowing difficulty with both solids and liquids, occasionally requiring expectoration of ingested food/liquid. Additional Testing: Swallow study (modified barium swallow/esophagram) ordered; EGD to assess for anatomic lesions. Medication Management: As per EGD/swallow study findings. Lifestyle Recommendations: Continue mindful, slow eating; report any food impactions or persistent esophageal symptoms. Follow-Up: Post-swallow study and EGD for review. (5) Elevated LFTs: Code(s): R79.89 - Other specified abnormal findings of blood chemistry Category: Medical Plan: History plus mild transaminitis on non-fasting labs. Additional Testing: Repeat LFTs fasting (>= 8h NPO except water). Medication Management: None initiated; reinforce lifestyle. Lifestyle Recommendations: Weight reduction, healthy diet (low refined sugar/saturated fat), regular exercise, limit alcohol. Follow-Up: After fasting labs, prior to next appointment. (6) Gallbladder polyp: Code(s): K82.4 - Cholesterolosis of gallbladder Category: Medical Plan: History of gallbladder polyp, previously followed by general surgery, no acute GI symptoms attributable. Additional Testing: Follow-up abdominal US as per general surgery recommendations. Medication Management: None by GI at this time. Lifestyle Recommendations: None specific. Follow-Up: Patient to contact Dr. Bass/general surgery for ongoing surveillance. (7) Lung nodule: Code(s): R91.1 - Solitary pulmonary nodule Category: Medical Plan: Stable on prior imaging; under pulmonology care, not affecting GI procedures. Additional Testing: Follow imaging per pulmonology. Medication Management: None by GI at this time. Lifestyle Recommendations: None specific; continue follow-up with pulmonology. Follow-Up: Per pulmonology recommendations. Plan Follow-up after endoscopy or sooner as needed Time: I spent a total of 45 minutes on the date of encounter which includes: Preparing to see the patient (reviewed previous documentation, test results and medical history) Performing a medically appropriate exam and/or evaluation Ordering medications, tests, and procedures Documenting clinical information in the health record Orders: Orders FL barium swallow Today K21.9 - Gastro-esophageal reflux disease without esophagitis, R13.10 - Dysphagia, unspecified Liver Panel Today R79.89 - Other specified abnormal findings of blood chemistry Referrals GI Procedure Notification K21.9 - Gastro-esophageal reflux disease without esophagitis, R13.10 - Dysphagia, unspecified, Z12.11 - Encounter for screening for malignant neoplasm of colon Medications: New bisacodyl Take per colonoscopy instructions 5 mg PO ONCE 4 tabs 0RF simethicone (Gas Relief (simethicone)) per colonoscopy prep instructions 125 mg PO ONCE 4 caps 0RF abdominal distention peg 3350-electrolytes 236-22.74-6.74 -5.86 gram until fecal effluent is clear 240 mL PO ONCE 4,000 mL 0RF Changed From omeprazole 20 mg PO DAILY To omeprazole Take one tablet daily, delay food 30 minutes. 20 mg PO DAILY 90 caps 1RF Coding Level of Care Code New Pt New Pt Level 4 (31474) Patient Type New Diagnoses Colon cancer screening Z12.11 Gastroesophageal reflux disease, unspecified whether esophagitis present K21.9 Esophagitis presence: esophagitis presence not specified Constipation, unspecified constipation type K59.00 Constipation type: unspecified constipation type Dysphagia, unspecified type R13.10 Dysphagia type: unspecified Elevated LFTs R79.89 Gallbladder polyp K82.4 Lung nodule R91.1
--- OUTSIDE RECORDS SUMMARY | 2025-04-07 18:11 | XMS_ITS | Clinical Summary ---
Author Organization [facility] Address [address] [place] [address] Phone Care Team Providers Care Juvenile Officer Name Role Phone Physician, No Pcp Primary [...] ID:Not on file Type:Not on file Address: [facility] ATTN:[employer] [address] [place] [id number] [employer] Care Teams Juvenile Officer Relationship Specialty Start Date End Date Physician, No Pcp PCP - General 07/18/24
--- OUTSIDE RECORDS SUMMARY | 2025-04-07 18:11 | XMS_ITS | Clinical Summary ---
Author Organization [facility] Address [address] [place] [address] Care Team Providers Care Critical Care Physician Assistant Name Role Phone Unavailable Primary Care Provider [...]
--- OUTSIDE RECORDS SUMMARY | 2025-04-07 18:11 | XMS_ITS | Encounter Summary ---
Author Organization [employer] Address [address] [place] [address] Care Team Providers Care Bladder Tier Name Role Phone Unavailable Primary Care Provider Unavailabl e Reason for Visit * Reason Onset Date Comments New patient 07/04/2023 Encounter Details Date Type Department Care Team (Late st Contact Info) Description 07/04/2023 Telephone [facility] [address] [place], [place] [phone] Eduar Rodriguez MD [address] [place], [place] [phone] New patient Social History Tobacco Use Types [...] patient with the facility to please call [facility] and switch insurance to C3, once done to give a call back to startprocess of becoming a Patient. Pt Understood. documented in this encounter Plan of Treatment Not on file documented as of this encounter Visit Diagnoses Not on filedocumented in this encounter
== END 2025-04-07 15:26 | disposition home or self-care (01) ==
LOC: HO.HGI 14:30
PROVIDERS: Visit Provider Nurse Practitioner Family
DX: K21.9 Gastro-esophageal reflux disease without esophagitis (principal); K59.00 Constipation, unspecified; R13.10 Dysphagia, unspecified; R74.01 Elevation of levels of liver transaminase levels; K82.4 Cholesterolosis of gallbladder; R91.1 Solitary pulmonary nodule
CPT/HCPCS: 99204

== ENCOUNTER → 2025-04-07 14:28 | Outpatient (BNVA) | payer MEDICARE, MEDICAID, SELFPAY | PROVIDERS: Visit Provider Nurse Practitioner Family | DX: Z12.11 Encounter for screening for malignant neoplasm of colon (principal); K21.9 Gastro-esophageal reflux disease without esophagitis; K59.00 Constipation, unspecified; K82.4 Cholesterolosis of gallbladder; R13.10 Dysphagia, unspecified; R79.89 Other specified abnormal findings of blood chemistry; R91.1 Solitary pulmonary nodule | CPT/HCPCS: 99202 ==

== ENCOUNTER 2025-04-23 10:08 | Outpatient (REF) | payer MEDICARE, MEDICAID, SELFPAY ==
--- OUTSIDE RECORDS SUMMARY | 2025-04-23 11:29 | XMS_ITS | Encounter Summary ---
Author Organization [employer] Address [address] [place] [address] Care Team Providers Care Waste Collector Name Role Phone Unavailable Primary Care Provider Unavailabl e Reason for Visit * Reason Onset Date Comments New patient 07/04/2023 Encounter Details Date Type Department Care Team (Late st Contact Info) Description 07/04/2023 Telephone [facility] [address] [place], [place] [phone] Eduar Rodriguez MD [address] [place], [place] [phone] New patient Social History Tobacco Use Types [...] patient with the facility to please call [facility] and switch insurance to C[facility], once done to give a call back to startprocess of becoming a Patient. Pt Understood. documented in this encounter Plan of Treatment Not on file documented as of this encounter Visit Diagnoses Not on filedocumented in this encounter
--- OUTSIDE RECORDS SUMMARY | 2025-04-23 11:29 | XMS_ITS | Clinical Summary ---
Author Organization [employer] Address [address] [facility] [address] [place] [address] Care Team Providers Care Television Installer Name Role Phone Unavailable Primary Care Provider [...]
[2025-04-23 11:32] LABS: Alanine Aminotransferase 54 U/L (0-40); Albumin Level 4.8 g/dL (3.5-5.0); Alkaline Phosphatase 78 U/L (39-117); Aspartate Amino Transferase 37 U/L (5-37); Cholesterol 214 mg/dL (<200); HDL Cholesterol 36 mg/dL (>40); Total Protein 7.7 g/dL (6.5-8.0); Triglycerides 323 mg/dL (<150)
[2025-04-23 11:46] LABS: HBS Num1 0.00 mIU/mL (0-7.99); HBc Num1 0.05 S/CO (0.00-0.79); HBsAGNum1 0.32 S/CO (0.00-0.99); Hepatitis B Surface Antigen Negative (Negative); ~HepC Num1 0.09 S/CO (0.00-0.79); ~Hepatitis B Surface Antibody NONREACTIVE (Nonreactive); ~Hepatitis C Antibody Nonreactive (Nonreactive)
== END 2025-04-23 10:09 | disposition home or self-care (01) ==
LOC: HO.LAB 10:08
PROVIDERS: Visit Provider Nurse Practitioner Family
DX: R79.89 Other specified abnormal findings of blood chemistry (principal); E78.00 Pure hypercholesterolemia, unspecified
CPT/HCPCS: 36415; 80061; 80076; 86704; 86706; 86803; 87340